=== PATIENT | male | born 1935 | race Caucasian/White ===

== ENCOUNTER 2020-02-18 17:41 | Inpatient (IN) ==
[2020-02-18 18:45] LABS: Hematocrit 45.1 % (42.0-52.0); Hemoglobin 15.1 gm/dL (13.5-18.0); Mean Corpuscular Hemoglobin 32.5 pg (27-31); Mean Corpuscular Hgb Conc 33.5 g/dl (32-36); Mean Platelet Volume 10.5 fl (8-11.3); Neutrophil # 5.1 K/mm3 (1.3-6.0); Neutrophil % 68.3 % (42-75.0); Platelet Count 184 K/mm3 (150-450); Red Blood Count 4.65 M/mm3 (4.7-6.0); Red Cell Distribution Width 12.7 % (11.5-14.0); White Blood Count 7.4 K/mm3 (4.0-10.5)
[2020-02-18 18:57] LABS: Prothrombin Time (Patient) 10.9 Seconds (9.1-10.7)
[2020-02-18 19:01] LABS: INR 1.11 INR (0.92-1.08); Partial Thrombolplastin Time 29.1 Seconds (24-32)
[2020-02-18 19:02] LABS: Albumin * 3.3 gm/dl (3.4-5.0); Anion Gap 16.7 mmol/L (6.8-13.8); BUN/Creatinine Ratio 13.5 (9.0-21.6); Bilirubin, Total 0.4 mg/dL (0.0-1.1); Calcium * 8.8 mg/dL (7.9-10.9); Carbon Dioxide 22.5 mmol/L (24-32.6); Potassium 4.2 mmol/L (3.4-4.6); Total Protein 7.8 gm/dL (6.2-8.2)
[2020-02-18 19:04] LABS: Troponin I 0.113 ng/mL (0.00-0.10)
[2020-02-18 19:49] LABS: Urine Bilirubin Negative (NEGATIVE); Urine Blood Negative /ul (NEGATIVE); Urine Ketone Negative (NEGATIVE); Urine Nitrite Negative (NEGATIVE); Urine Protein 15 mg/dL (NEGATIVE); Urine Urobilinogen Normal (NORMAL); Urine pH 6.5 pH (5.0-7.0)
[2020-02-18] MEDS ORDERED: FUROSEMIDE 10 MG/ML VIAL IV ONE (19:52)
[2020-02-18 20:12] LABS: Urine Amorphous Sediment Many - 3+ (NONE-FEW); Urine Appearance Clear (CLEAR); Urine Bacteria TRACE; Urine Color Yellow; Urine RBC None Seen /hpf (0-5); Urine WBC TRACE /hpf (0-5)
[2020-02-18] MEDS ORDERED: ENOXAPARIN SODIUM 100 MG/ML SYRG SC SCH (22:00)
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
[2020-02-19] MEDS: ACETAMINOPHEN 325 MG TABLET PO PRN ×2 (00:47→08:40)
[2020-02-19] MEDS: LOSARTAN POTASSIUM 50 MG TABLET PO SCH (08:39)
[2020-02-19] MEDS: ASPIRIN 81 MG TABLET.DR PO SCH (08:39)
[2020-02-19] MEDS ORDERED: SIMVASTATIN 20 MG TABLET PO SCH ×2 (09:00→21:00)
[2020-02-19] MEDS ORDERED: CLOPIDOGREL BISULFATE 75 MG TABLET PO SCH (09:00)
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
[2020-02-19] MEDS: DEXAMETHASONE SODIUM PHOSP/PF 10 MG/ML VIAL IV SCH (11:40)
[2020-02-19] MEDS: ENOXAPARIN SODIUM 80 MG/0.8 ML DISP.SYRIN SC SCH ×2 (11:40→22:53)
[2020-02-19] MEDS: FUROSEMIDE 40 MG TABLET PO SCH (11:40)
[2020-02-20] MEDS: LOSARTAN POTASSIUM 50 MG TABLET PO SCH (09:16)
[2020-02-20] MEDS: DEXAMETHASONE SODIUM PHOSP/PF 10 MG/ML VIAL IV SCH (09:16)
[2020-02-20] MEDS: ASPIRIN 81 MG TABLET.DR PO SCH (09:16)
[2020-02-20] MEDS: FUROSEMIDE 40 MG TABLET PO SCH (09:17)
[2020-02-20] MEDS: ENOXAPARIN SODIUM 80 MG/0.8 ML DISP.SYRIN SC SCH (10:35)
--- NOTE | 2020-02-20 16:34 | DS ---
(1) COVID-19 Problem: Acute (2) CHF (congestive heart failure) Problem: Acute Qualifiers: Heart failure type: unspecified Heart failure chronicity: acute Qualified Code(s): I50.9 - Heart failure, unspecified (3) Fatigue Problem: Resolved (4) Weakness Problem: Resolved (5) Elevated brain natriuretic peptide (BNP) level Problem: Acute (6) Lactic acidosis Problem: Resolved Date of Discharge:: 02/20/20 Hospital Course: 84-year-old male admitted to [facility] as an inpatient due to profound weakness and deconditioning from COVID-19 infection. From a Covid patient standpoint, he was very stable did not require oxygen. He was started on Lovenox as a DVT prophylaxis. He also started on Decadron which will be continued for an additional 5 days while here he made significant provement in his strength and mentation. Initially concerned that he was confused that was not seen while here. He was appropriate with his responses and pleasant to converse with. He has had fevers off and on since being here though and patient will need to continue to quarantine at home until his fevers pass for at least 7 days. Of note patient was found to have an elevated BNP but he has no history of CHF. This will need to be evaluated in outpatient setting. Patient would benefit from echocardiogram which can be ordered by his PCP. Patient did receive Lasix while here but would not be sent home with any as he did not appear to fluid overloaded. Patient will need further work-up in regards to this. No changes to his chronic medications. His vital signs been stable while here aside from 2 elevated temperature readings on the rest were within normal limits. Patient is to follow-up with his PCP in 1 to 2 weeks after he has stopped having fevers. This can also be arranged by telemedicine. Procedures Performed: none Results and Findings: Lab Pending Results 02/18/20 18:37: WBC 7.4, RBC 4.65 L, Hgb 15.1, Hct 45.1, MCV 97.0, MCH 32.5 H, MCHC 33.5, RDW 12.7, Plt Count 184, MPV 10.5, Immature Gran % (Auto) 0.40, Immature Gran # (Auto) 0.03, Neutrophils % 68.3, Lymphocytes % 25.3, Monocytes % 5.7, Eosinophils % 0.0, Basophils % 0.3, Nucleated RBC % 0.0, Neutrophils # 5.1, Lymphocytes # 1.87, Monocytes # 0.4, Eosinophils # 0.0, Absolute Basophils 0.0 02/18/20 18:37: ESR 50 H 02/18/20 18:37: PT 10.9 H, INR (Anticoag Therapy) 1.11 H, PTT (Ziggy) 29.1 02/18/20 18:37: Sodium 129 L, Plasma Sodium 130, Potassium 4.2, Chloride 94 L, Carbon Dioxide 22.5 L, Anion Gap 16.7 H, BUN 18, Creatinine 1.33, Est GFR (Non- Af Amer) 55 L, BUN/Creatinine Ratio 13.5, Random Glucose 139 H, Calcium 8.8, Calcium Adj for Albumin 9.0, Total Bilirubin 0.4, AST 35, ALT 28, Alkaline Phosphatase 52, Troponin I 0.113 H*, Total Protein 7.8, Albumin 3.3 L 02/18/20 18:37: B-Natriuretic Peptide 3911 H 02/18/20 18:37: Procalcitonin 0.07 02/18/20 18:37: Lactic Acid, Venous 2.5 H* 02/18/20 19:13: SARS-CoV-2 (PCR) Detected H 02/18/20 19:24: Urine Color Yellow, Urine Appearance Clear, Urine pH 6.5, Ur Specific [place] 1.020, Urine Protein 15 H, Urine Glucose (UA) Negative, Urine Ketones Negative, Urine Blood Negative, Urine Nitrate Negative, Urine Bilirubin Negative, Prot Sulfosalicylic Acd Negative, Urine Urobilinogen Normal, Ur Leukocyte Esterase Negative, Urine RBC None seen, Urine WBC Trace, Ur Epithelial Cells Trace, Amorphous Sediment Many - 3+ H, Urine Bacteria Trace, Urine Culture Comments No culture indicated 02/18/20 19:30: Ammonia Less than 17.0 02/18/20 20:00: pCO2 30.8 L, pO2 63.5 L, HCO3 22.4, Total CO2 23.3, Base Excess -0.1, ABG pH 7.48 H, ABG O2 Sat (Measured) 93.9 L 02/18/20 21:24: Troponin I 0.112 H* 02/18/20 22:30: Lactic Acid, Venous 1.0 Discharge Location: Home Disposition: Home self-care Condition: Stable Discharge Activity: Activity as tolerated Discharge Diet: General/regular food Referrals: Kyle Ji MD [Primary Care Provider] - Two Weeks Prescriptions (Any new or edited meds): Dexamethasone 6 mg PO DAILY #5 tab Transmission Status: Pending to [facility] Complete Home Medications List: Complete Home Medication List: Aspirin [Aspirin EC] 81 mg PO DAILY 02/18/20 Clopidogrel Bisulfate [Plavix] 75 mg PO DAILY 02/18/20 Losartan Potassium [Cozaar] 100 mg PO 02/18/20 Multivitamin [Multivitamins] 1 ea PO DAILY 02/18/20 Pravastatin Sodium [Pravachol] 40 mg PO 02/18/20 Promethazine HCl [Phenergan Syrup] 6.25 mg PO 02/18/20 Triamcinolone Acetonide [Kenalog 0.025% Cream] 1 appl TOPICAL BID 02/18/20 Dexamethasone 6 mg PO DAILY #5 tab 02/20/20 Forms: Patient Portal Registration
[2020-02-20 18:44] VITALS: BP 132/78
== END 2020-02-20 18:00 | disposition home or self-care (01) | DRG 178 ==
LOC: MS 17:41 → ER 17:41 → MS 23:30
PROVIDERS: ADMIT Family Medicine; ATTEND Family Medicine
DX: N18.30 Chronic kidney disease, stage 3 unspecified; R41.82 Altered mental status, unspecified; I13.0 Hypertensive heart and chronic kidney disease with heart failure and stage 1 through stage 4 chronic kidney disease, or unspecified chronic kidney disease; U07.1 COVID-19; R53.1 Weakness

== ENCOUNTER 2020-02-20 23:56 | Inpatient (IN) ==
[2020-02-21 01:37] LABS: Hematocrit 44.2 % (42.0-52.0); Mean Cell Volume 95.5 fl (78-100); Mean Corpuscular Hemoglobin 32.4 pg (27-31); Mean Corpuscular Hgb Conc 33.9 g/dl (32-36); Mean Platelet Volume 11.1 fl (8-11.3); Neutrophil # 5.4 K/mm3 (1.3-6.0); Neutrophil % 77.8 % (42-75.0); Platelet Count 204 K/mm3 (150-450); Red Blood Count 4.63 M/mm3 (4.7-6.0); Red Cell Distribution Width 12.3 % (11.5-14.0)
[2020-02-21 01:40] LABS: Anion Gap 9.9 mmol/L (6.8-13.8); BUN/Creatinine Ratio 16.4 (9.0-21.6); Bilirubin, Total 0.4 mg/dL (0.0-1.1); Ca. Corrected For Albumin 8.6 mg/dL (8.4-10.2); Calcium * 8.1 mg/dL (7.9-10.9); Carbon Dioxide 27.1 mmol/L (24-32.6); Total Protein 7.4 gm/dL (6.2-8.2)
[2020-02-21 01:43] LABS: Troponin I 0.058 ng/mL (0.00-0.10)
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
[2020-02-21] MEDS ORDERED: NORMAL SALINE 1,000 ML IV ONE ×2 (03:19→03:35)
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
[2020-02-21 06:47] LABS: Hematocrit 43.4 % (42.0-52.0); Hemoglobin 14.7 gm/dL (13.5-18.0); Mean Corpuscular Hemoglobin 32.2 pg (27-31); Mean Corpuscular Hgb Conc 33.9 g/dl (32-36); Mean Platelet Volume 10.8 fl (8-11.3); Neutrophil # 5.7 K/mm3 (1.3-6.0); Platelet Count 188 K/mm3 (150-450); Red Blood Count 4.57 M/mm3 (4.7-6.0); Red Cell Distribution Width 12.3 % (11.5-14.0); White Blood Count 7.3 K/mm3 (4.0-10.5)
[2020-02-21 07:09] LABS: Albumin * 2.9 gm/dl (3.4-5.0); Anion Gap 11.9 mmol/L (6.8-13.8); Bilirubin, Total 0.5 mg/dL (0.0-1.1); Ca. Corrected For Albumin 8.8 mg/dL (8.4-10.2); Calcium * 8.2 mg/dL (7.9-10.9); Carbon Dioxide 24.9 mmol/L (24-32.6); Potassium 3.8 mmol/L (3.4-4.6); Total Protein 7.2 gm/dL (6.2-8.2)
[2020-02-21] MEDS ORDERED: DEXAMETHASONE 6 MG PO SCH (11:00)
[2020-02-21] MEDS ORDERED: LOSARTAN POTASSIUM 50 MG TABLET PO SCH (11:00)
[2020-02-21] MEDS: DEXAMETHASONE 2 MG, DEXAMETHASONE 4 MG PO SCH ×2 (12:15)
[2020-02-21] MEDS: ASPIRIN 81 MG TABLET.DR PO SCH (12:15)
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
[2020-02-21] MEDS: SIMVASTATIN 20 MG TABLET PO SCH (20:07)
[2020-02-22 06:51] LABS: Hematocrit 45.2 % (42.0-52.0); Hemoglobin 15.2 gm/dL (13.5-18.0); Mean Corpuscular Hemoglobin 32.3 pg (27-31); Mean Corpuscular Hgb Conc 33.6 g/dl (32-36); Mean Platelet Volume 10.7 fl (8-11.3); Neutrophil # 6.3 K/mm3 (1.3-6.0); Neutrophil % 81.4 % (42-75.0); Platelet Count 191 K/mm3 (150-450); Red Blood Count 4.71 M/mm3 (4.7-6.0); Red Cell Distribution Width 12.4 % (11.5-14.0); White Blood Count 7.7 K/mm3 (4.0-10.5)
[2020-02-22 07:10] LABS: Albumin * 2.7 gm/dl (3.4-5.0); Anion Gap 11.3 mmol/L (6.8-13.8); BUN/Creatinine Ratio 18.9 (9.0-21.6); Bilirubin, Total 0.5 mg/dL (0.0-1.1); Ca. Corrected For Albumin 8.8 mg/dL (8.4-10.2); Calcium * 8.1 mg/dL (7.9-10.9); Carbon Dioxide 25.8 mmol/L (24-32.6); Potassium 4.1 mmol/L (3.4-4.6); Total Protein 7.2 gm/dL (6.2-8.2)
[2020-02-22] MEDS: DEXAMETHASONE 2 MG, DEXAMETHASONE 4 MG PO SCH ×2 (10:07)
[2020-02-22] MEDS: CLOPIDOGREL BISULFATE 75 MG TABLET PO SCH (10:07)
[2020-02-22] MEDS: ASPIRIN 81 MG TABLET.DR PO SCH (10:08)
--- NOTE | 2020-02-22 10:31 | PN ---
Subjective - Date and Time Seen Date: 02/22/20 Time: 09:23 Subjective Narrative: He feels okay, denies chest pain or shortness of breath. He has an intermittent cough. He is alert and oriented x3. Objective - Review of Systems Generalized/Overall Review: Denies: Fever Respiratory: Denies: Shortness of Breath Cardiac: Denies: Chest Pain Abdominal: Denies: Abdominal Pain Misc: All systems neg except as marked - Vitals Vitals: Last Vital Signs Temp 37.6 C 02/22/20 09:58 Pulse 99 02/22/20 10:07 Resp 22 H 02/22/20 09:58 BP 124/81 02/22/20 10:07 Pulse Ox 93 02/22/20 09:58 - Abnormal Lab Findings Abnormal Lab Findings: Abnormal Lab Results 02/22/20 02/22/20 Range/Units 06:40 06:40 MCH 32.3 H (27-31) pg Immature Gran % (Auto) 0.80 H (0.001-0.429) % Immature Gran # (Auto) 0.06 H (0.000-0.0310) K/mm3 Neutrophils % 81.4 H (42-75.0) % Lymphocytes % 11.7 L (20-51) % Neutrophils # 6.3 H (1.3-6.0) K/mm3 Lymphocytes # 0.90 L (1.5-3.5) k/mm3 Sodium 130 L (132-142) mmol/L BUN 24 H (6-23) mg/dL Est GFR (Non-Af Amer) 58 L (60-130) mL/min Random Glucose 128 H (70-110) mg/dL AST 70 H (0-48) U/L Albumin 2.7 L (3.4-5.0) gm/dl - Exam Constitutional: Present: Alert, Oriented x3, Cooperative, Well developed, Well nourished, No distress, Elderly ENT Exam: Present: hearing grossly normal Neck: Present: non-tender, supple. Absent: lymphadenopathy (R), lymphadenopathy (L) Respiratory: Present: lungs clear, no respiratory distress, no accessory muscle use, decreased breath sounds - Throughout all lung macdonald, No wheezing. Absent: crackles, rhonchi Cardiovascular/Chest: Present: normal peripheral pulses, regular rate, rhythm, no edema, no murmur Abdomen: Present: Normal bowel sounds, soft, nontender Extremity: Present: no pedal edema Skin Exam: Present: normal color, warm/dry Neurologic: Present: program assistant II-XII nml as tested, alert, normal mood/affect Appearance: Present: appropriate appearance Eye contact: Present: cooperative Thoughts: Present: normal mood /affect Assessment/Plan Plan Narrative: 84-year-old male with a past medical history of CKD 3, hypertension, hyperlipidemia, ARTEMIO, pulmonary fibrosis presents from home with altered mental status and fever. Patient was recently discharged from the hospital yesterday after being admitted for Covid. In the emergency room he received a CT scan that was negative for acute hemorrhage or mass effect. Blood work was positive for hyponatremia at 125. He received IV fluid hydration and blood work this morning improved to 127. Etiology of the altered mental status may be multifactorial secondary to acute hyponatremia, COVID-19 infection and fever. He appears more alert today. He is alert and oriented x3. Sodium has improved to 130. He has been afebrile for the past 24 hours. Plan #1 continue with IV fluid fluid hydration #2 repeat CBC and CMP in the morning #4 continue with dexamethasone 6 mg daily #5 oxygen supplementation as needed #6 resume home medications for comorbidities #7 VTE prophylaxis with Lovenox - Problems/Diagnosis (1) Fever Problem: Acute (2) COVID-19 Problem: Acute (3) CHF (congestive heart failure) Problem: Acute (4) Altered mental status Problem: Acute (5) Confusion Problem: Acute (6) Hyponatremia Problem: Acute (7) CKD (chronic kidney disease) stage 3, GFR 30-59 ml/min Problem: Acute (8) HTN (hypertension) Problem: Acute (9) HLD (hyperlipidemia) Problem: Acute (10) Metabolic encephalopathy Problem: Acute
[2020-02-22] MEDS ORDERED: NORMAL SALINE 1,000 ML IV PRN (12:27)
[2020-02-22] MEDS: ENOXAPARIN SODIUM 40 MG/0.4 ML SYRG SC SCH (13:03)
[2020-02-22] MEDS: SIMVASTATIN 20 MG TABLET PO SCH (20:57)
[2020-02-23] MEDS ORDERED: ENALAPRILAT DIHYDRATE 2.5 MG/2 ML VIAL IV ONE (00:14)
[2020-02-23] MEDS ORDERED: MORPHINE SULFATE 4 MG/ML SYRG ONE (00:15)
[2020-02-23] MEDS ORDERED: LORazepam 2 MG/ML DISP.SYRIN ONE (00:16)
[2020-02-23] MEDS ORDERED: MORPHINE SULFATE 4 MG/ML SYRG IV STA (00:16)
[2020-02-23] MEDS ORDERED: ENALAPRILAT DIHYDRATE 1.25 MG/ML VIAL IV STA (00:17)
[2020-02-23] MEDS ORDERED: LORazepam 2 MG/ML DISP.SYRIN IV STA (00:17)
[2020-02-23] MEDS ORDERED: MORPHINE SULFATE 2 MG/ML DISP.SYRIN IV PRN (01:05)
[2020-02-23] MEDS ORDERED: LORazepam 2 MG/ML DISP.SYRIN IV PRN (01:05)
[2020-02-23] MEDS: NITROGLYCERIN 1 INCH PACKET TD SCH ×4 (01:24→20:25)
--- NOTE | 2020-02-23 01:53 | DS ---
Transfer Discharge Summary - Diagnosis(s)/Problems (1) Acute anterior wall PR Problem: Acute (2) COVID-19 Problem: Acute (3) HTN (hypertension) Problem: Acute - Course Description of Stay: 84-year-old male with a past medical history of CKD 3, hypertension, hyperlipidemia, ARTEMIO, pulmonary fibrosis presents from home with altered mental status and fever. Patient was recently discharged from the hospital yesterday after being admitted for Covid. In the emergency room he received a CT scan that was negative for acute hemorrhage or mass effect. Blood work was positive for hyponatremia at 125. He received IV fluid hydration and blood work this morning improved to 127. About 1130 he was discovered to be in acute respiratory distress in his room. He was hypoxic with sats in the 70s and was very agitated and frightened because of the hypoxemia. He was placed on a O2 mask at 12 L and his sats came back up at 91%. Blood gases show pH 7.37 with mild hypercarbia and bicarb being low at 17. The EKG shows a STEMI in the anterior wall. Troponin was just reported to me at 0.275. This is up from 0.0582 days ago. I been informed that he recently had a stent placed but he doctors in [facility] and we do not know the location of the stent at this time. He is on aspirin and Plavix routinely because of the stent and he has been on Lovenox here. He presented 2 days ago with shortness of breath was treated in ER released and went back home to self quarantine but worsened and represented to ER today. He is a patient of Dr. ramirez. I gave him morphine 3 mg and lorazepam 1 mg and have placed 1 inch of nitro paste on the AC W and also gave him 0.0625 of enalapril IV. He takes p.o. losartan which I will put on hold. I contacted [facility] and they had a CCU bed but not a Covid room. I contacted [facility] and they are at capacity for their Covid patients but would accept him with STEMI. I spoke with Dr. Cordoba at [facility] whose a bone density technician and reviewed the case with him. He insists that I give TPA here before transferring and so that will be done. I advised him of the recent stent placement and that he was on aspirin and Plavix on admission and is now on enoxaparin. There are acute EKG changes and there is an acute elevation of his troponin so I am confident that he has had an acute anterior wall PR. He will be transferred to [facility] as soon as the TPA is completed. After discussing this with the daughters it was decided to just allow him to evolve his PR rather than risk a thrombolytic. The tipping point for me was the blood-tinged frothy sputum he coughed up when he was having his acute pulmonary edema. He is has relative contraindications including being on a variety of anticoagulation medicines. I encouraged the family not to take the risk and they concurred. We also did another EKG that showed only V1 and V2 having continued mild ST elevation. It had returned to baseline in 3 and 4. I have no doubt that he had a STEMI with a bump in his troponin and the changes in his EKG and clinical appearance. Therefore he was not transferred. Procedures Performed: none - Results and Findings Results and Findings: Laboratory Results - last 24 hr 02/22/20 02/22/20 02/22/20 06:40 06:40 23:50 WBC 7.7 RBC 4.71 Hgb 15.2 Hct 45.2 MCV 96.0 MCH 32.3 H MCHC 33.6 RDW 12.4 Plt Count 191 MPV 10.7 Immature Gran % (Auto) 0.80 H Immature Gran # (Auto) 0.06 H Neutrophils % 81.4 H Lymphocytes % 11.7 L Monocytes % 6.0 Eosinophils % 0.0 Basophils % 0.1 Nucleated RBC % 0.0 Neutrophils # 6.3 H Lymphocytes # 0.90 L Monocytes # 0.5 Eosinophils # 0.0 Absolute Basophils 0.0 pCO2 29.7 L pO2 62.4 L HCO3 17.1 L Total CO2 18.0 L Base Excess -6.3 L ABG pH 7.38 ABG O2 Sat (Measured) 91.9 L Sodium 130 L Plasma Sodium 130 Potassium 4.1 Chloride 97 Carbon Dioxide 25.8 Anion Gap 11.3 BUN 24 H Creatinine 1.27 Est GFR (Non-Af Amer) 58 L BUN/Creatinine Ratio 18.9 Random Glucose 128 H Calcium 8.1 Calcium Adj for Albumin 8.8 Total Bilirubin 0.5 AST 70 H ALT 60 Alkaline Phosphatase 50 Total Protein 7.2 Albumin 2.7 L - Medications Medications: Active Medications Aspirin (Aspirin Enteric Coated) 81 mg PO DAILY DIEGO Stop: 03/22/20 11:01 Last Admin: 02/22/20 10:08 Dose: 81 mg Documented by: Clopidogrel Bisulfate (Plavix) 75 mg PO DAILY DIEGO Stop: 03/23/20 09:01 Last Admin: 02/22/20 10:07 Dose: 75 mg Documented by: Dexamethasone 2 mg/ (Dexamethasone 4 mg) 6 mg PO DAILY DIEGO Stop: 03/22/20 11:16 Last Admin: 02/22/20 10:07 Dose: 6 mg Documented by: Enoxaparin Sodium (Lovenox) 40 mg SC Q24H DIEGO Stop: 03/23/20 12:31 Last Admin: 02/22/20 13:03 Dose: 40 mg Documented by: Losartan Potassium (Cozaar) 100 mg PO DAILY DIEGO Stop: 03/22/20 11:01 Last Admin: 02/22/20 10:07 Dose: 100 mg Documented by: Nitroglycerin (Nitro-Bid 2% Ointment) 1 inch TD Q6HRT DIEGO Stop: 03/24/20 01:01 Last Admin: 02/23/20 01:24 Dose: 1 inch Documented by: Simvastatin (Zocor) 20 mg PO HS DIEGO Stop: 03/22/20 21:01 Last Admin: 02/22/20 20:57 Dose: 20 mg Documented by: Discontinued Medications Enalaprilat (Vasotec) 0.625 mg IV ONCE STA Stop: 02/23/20 00:18 Last Admin: 02/23/20 00:23 Dose: 0.625 mg Documented by: Sodium Chloride (Sodium Chloride 0.9%) 1,000 mls @ 999 mls/hr IV .Q1H1M ONE Stop: 02/21/20 04:19 Last Infusion: 02/21/20 09:43 Dose: Infused Documented by: Sodium Chloride (Sodium Chloride 0.9%) 1,000 mls @ 100 mls/hr IV .Q10H ONE Stop: 02/21/20 13:34 Last Infusion: 02/21/20 13:50 Dose: Infused Documented by: Sodium Chloride (Sodium Chloride 0.9%) 1,000 mls @ 70 mls/hr IV .[id number] PRN PRN Reason: HYDRATION Last Admin: 02/22/20 13:03 Dose: 70 mls/hr Documented by: Lorazepam (Ativan) 1 mg IV ONCE STA Stop: 02/23/20 00:18 Last Admin: 02/23/20 00:20 Dose: 1 mg Documented by: Morphine Sulfate (Morphine Sulfate) 3 mg IV ONCE STA Stop: 02/23/20 00:17 Last Admin: 02/23/20 00:23 Dose: 3 mg Documented by: - Disposition Disposition: Short Term Hospital Inpatient Condition: Serious Discharge Date: 02/23/20 Discharge Time: 01:50
[2020-02-23] MEDS ORDERED: ALTEPLASE IV STA (02:03)
[2020-02-23] MEDS ORDERED: WATER FOR INJECTION STERILE IV STA (02:03)
[2020-02-23 07:09] LABS: Hematocrit 41.6 % (42.0-52.0); Hemoglobin 14.3 gm/dL (13.5-18.0); Mean Corpuscular Hemoglobin 32.6 pg (27-31); Mean Corpuscular Hgb Conc 34.4 g/dl (32-36); Mean Platelet Volume 10.7 fl (8-11.3); Neutrophil # 12.1 K/mm3 (1.3-6.0); Neutrophil % 88.9 % (42-75.0); Platelet Count 198 K/mm3 (150-450); Red Blood Count 4.38 M/mm3 (4.7-6.0); Red Cell Distribution Width 12.6 % (11.5-14.0); White Blood Count 13.6 K/mm3 (4.0-10.5)
[2020-02-23 07:22] LABS: Albumin * 2.3 gm/dl (3.4-5.0); Anion Gap 13.6 mmol/L (6.8-13.8); BUN/Creatinine Ratio 22.6 (9.0-21.6); Bilirubin, Total 0.5 mg/dL (0.0-1.1); Ca. Corrected For Albumin 8.8 mg/dL (8.4-10.2); Calcium * 7.8 mg/dL (7.9-10.9); Carbon Dioxide 22.9 mmol/L (24-32.6); Potassium 4.5 mmol/L (3.4-4.6); Total Protein 6.3 gm/dL (6.2-8.2)
[2020-02-23] MEDS: ENALAPRILAT DIHYDRATE 1.25 MG/ML VIAL IV SCH ×4 (08:58→20:25)
[2020-02-23] MEDS: ASPIRIN 81 MG TABLET.DR PO SCH (08:58)
[2020-02-23] MEDS: DEXAMETHASONE 2 MG, DEXAMETHASONE 4 MG PO SCH ×2 (08:59)
[2020-02-23] MEDS: CLOPIDOGREL BISULFATE 75 MG TABLET PO SCH (09:00)
[2020-02-23] MEDS: ENOXAPARIN SODIUM 40 MG/0.4 ML SYRG SC SCH (13:37)
[2020-02-23] MEDS: TRIAMCINOLONE ACETONIDE 15 APPL TUBE TP SCH ×2 (13:41→20:25)
--- NOTE | 2020-02-23 16:11 | PN ---
Subjective - Date and Time Seen Date: 02/23/20 Time: 12:25 Subjective Narrative: Dewayne Baron is an 84-year-old male patient of Dr. Oliveira in [place]. He presented here because of marked shortness of breath and dyspnea and was admitted. He had a very eventful night having an acute myocardial infarction that was a STEMI in the anterior chest wall. His symptoms began around 1140 last night. I came in about 1230 and was here until oh 3:40 AM. He was very anxious and air hungry. They were able to get him on 15 L of nasal cannula O2 which was later changed to nonrebreather mask and his sats came up from the low 70s into the low 90s. He was given morphine. Is also given lorazepam. He was much more comfortable within about 30 minutes of that. The chest x-ray showed flash pulmonary edema in the EKG showed ST elevation in the anterior wall. Initially I had intended to transfer him. I talked to Dr. Cordoba (cardiology) and Rajesh and he would accept but only if I gave thrombolytics. He had coughed up some blood-tinged sputum during the pulmonary edema episode. I spoke with his daughters at length and try to get a hold of Dr. Oliveira but he was out of town. The daughters have medical power of associate attorney. Mr. Baron had a DNR and DNI order in place. He has verbalized to me today that he wants to rescend that DNR order. He remained stable for the next hour and a half and the decision was made to just let him evolve the VT rather than risk thrombolytic therapy. Today he is awake alert conversant and in no distress. His oxygen saturations are in the 90s. He requested something for coughing and for sleep. I gave him some codeine with guaifenesin and that did seem to help with the cough and he slept well for a while. Because of the VT I think he will have to be here the weekend. From the Covid perspective I think he is close to being dischargeable. Vital signs: Pulse this morning was 124 and respirations 30, BP 123/72, O2 saturation =91% while awake on room air and dropped to 85% when he fell asleep. The CBC is a white count of 13,600 hemoglobin is 12.3 g. There is 89% neutrophils. Sodium is 129 potassium 4.5 CO2 is 22.9. Chloride is normal. Glucose was 206 this morning. The AST is 67 and down from 71 and the ALT is 44 and down from 50. The albumin is 2.3 and down from 2.6. The troponin is elevated at 2.144 up from 0.05 on admission. The chest x-ray shows pulmonary vascular congestion and pneumonia and cardiomegaly. The EKG shows an acute STEMI in the anterior wall. Objective - Review of Systems Generalized/Overall Review: Reports: Weakness, Malaise EENTM: Reports: No Symptoms Reported Respiratory: Reports: Cough, Shortness of Breath, Wheezing Cardiac: Reports: No Symptoms Reported, Chest Pain. Denies: Edema, Palpitations Abdominal: Reports: No Symptoms Reported Genitourinary Symptoms: Reports: No Symptoms Reported Musculoskeletal Complaints: Reports: No Symptoms Reported Neurological: Reports: No Symptoms Reported Skin: Reports: No Symptoms Reported Endocrine: Reports: No Symptoms Reported - Vitals Vitals: Last Vital Signs Temp 37.3 C 02/23/20 15:08 Pulse 124 H 02/23/20 15:08 Resp 30 H 02/23/20 15:08 BP 123/72 02/23/20 15:08 Pulse Ox 91 L 02/23/20 15:08 - Abnormal Lab Findings Abnormal Lab Findings: Abnormal Lab Results 02/22/20 02/23/20 02/23/20 Range/Units 23:50 01:05 06:55 WBC 13.6 H D (4.0-10.5) K/mm3 RBC 4.38 L (4.7-6.0) M/mm3 Hct 41.6 L (42.0-52.0) % MCH 32.6 H (27-31) pg Immature Gran % (Auto) 1.10 H (0.001-0.429) % Immature Gran # (Auto) 0.15 H (0.000-0.0310) K/mm3 Neutrophils % 88.9 H (42-75.0) % Lymphocytes % 6.2 L (20-51) % Neutrophils # 12.1 H (1.3-6.0) K/mm3 Lymphocytes # 0.85 L (1.5-3.5) k/mm3 pCO2 29.7 L (35.0-48.0) mmHg pO2 62.4 L (83.0-108.0) mmHg HCO3 17.1 L (21.0-28.0) mmol/L Total CO2 18.0 L (19.0-24.0) mmol/L Base Excess -6.3 L (-2.0-3.0) mmol/L ABG O2 Sat (Measured) 91.9 L (94.0-98.0) % Sodium (132-142) mmol/L Carbon Dioxide (24-32.6) mmol/L BUN (6-23) mg/dL Est GFR (Non-Af Amer) (60-130) mL/min BUN/Creatinine Ratio (9.0-21.6) Random Glucose (70-110) mg/dL Calcium (7.9-10.9) mg/dL AST (0-48) U/L ALT (19-67) U/L Alkaline Phosphatase (50-170) U/L Troponin I 0.275 H* (0.00-0.10) ng/mL Albumin (3.4-5.0) gm/dl 02/23/20 02/23/20 Range/Units 06:55 06:55 WBC (4.0-10.5) K/mm3 RBC (4.7-6.0) M/mm3 Hct (42.0-52.0) % MCH (27-31) pg Immature Gran % (Auto) (0.001-0.429) % Immature Gran # (Auto) (0.000-0.0310) K/mm3 Neutrophils % (42-75.0) % Lymphocytes % (20-51) % Neutrophils # (1.3-6.0) K/mm3 Lymphocytes # (1.5-3.5) k/mm3 pCO2 (35.0-48.0) mmHg pO2 (83.0-108.0) mmHg HCO3 (21.0-28.0) mmol/L Total CO2 (19.0-24.0) mmol/L Base Excess (-2.0-3.0) mmol/L ABG O2 Sat (Measured) (94.0-98.0) % Sodium 129 L (132-142) mmol/L Carbon Dioxide 22.9 L (24-32.6) mmol/L BUN 28 H (6-23) mg/dL Est GFR (Non-Af Amer) 59 L (60-130) mL/min BUN/Creatinine Ratio 22.6 H (9.0-21.6) Random Glucose 206 H D (70-110) mg/dL Calcium 7.8 L (7.9-10.9) mg/dL AST 67 H (0-48) U/L ALT 70 H (19-67) U/L Alkaline Phosphatase 44 L (50-170) U/L Troponin I 2.144 H* (0.00-0.10) ng/mL Albumin 2.3 L (3.4-5.0) gm/dl - EKG/Xray Findings EKG: NSR, ST elevation - V1 through V4, other - Interventricular conduction delay EKG read: Interp. by me XRAY: chest Interpretation: Interp. by me - Exam Constitutional: Present: Alert, Oriented x3, Cooperative, Well developed, Well nourished, No distress ENT Exam: Present: normal ENT inspection, hearing grossly normal, pharynx normal, TMs normal Neck: Present: non-tender, full range of motion, supple Breasts: Present: Exam deferred Respiratory: Present: chest non-tender, decreased breath sounds, crackles, wheezing Cardiovascular/Chest: Present: normal peripheral pulses, regular rate, rhythm, no chest tenderness, no edema, no gallop, no JVD, no murmur Abdomen: Present: Normal bowel sounds, soft, nontender, nondistended, no rebound tenderness, no hepatospenomegaly, no masses /Rectal: Present: Exam deferred Extremity: Present: normal range of motion, non-tender, normal inspection, no pedal edema, no calf tenderness, normal capillary refill Skin Exam: Present: normal color, warm/dry, no cyanosis Lymphatic: Present: no adenopathy Neurologic: Present: can closing machine tender II-XII nml as tested, normal cerebellar test, no motor/sensory deficits, alert, normal mood/affect, oriented x 3 Appearance: Present: appropriate appearance, appropriate insight, neat, no memory impairment Eye contact: Present: cooperative, good eye contact, normal speech, avoids eye contact Thoughts: Present: normal thought pattern, no apparent hallucination, auditory hallucinations Assessment/Plan Plan Narrative: 1. Continue current continuous cardiac monitoring 2. Repeat EKG and chest x-ray tomorrow morning 3. Repeat lab tomorrow morning 4. I had a good visit with him about the DNR and that we probably would have intubated him last night had he not had that in place. He wishes to rescind the DNR. - Problems/Diagnosis (1) Acute anterior wall VT Problem: Acute (2) COVID-19 Problem: Acute (3) HTN (hypertension) Problem: Acute Qualifiers: Hypertension type: essential hypertension Qualified Code(s): I10 - Essential (primary) hypertension
[2020-02-23] MEDS: SIMVASTATIN 20 MG TABLET PO SCH (20:25)
[2020-02-24] MEDS: NITROGLYCERIN 1 INCH PACKET TD SCH ×4 (01:20→20:11)
[2020-02-24] MEDS: ENALAPRILAT DIHYDRATE 1.25 MG/ML VIAL IV SCH ×2 (01:21→07:08)
[2020-02-24] MEDS: CLOPIDOGREL BISULFATE 75 MG TABLET PO SCH (09:59)
[2020-02-24] MEDS: DEXAMETHASONE 2 MG, DEXAMETHASONE 4 MG PO SCH ×2 (09:59)
[2020-02-24] MEDS: ASPIRIN 81 MG TABLET.DR PO SCH (09:59)
[2020-02-24 10:13] LABS: Hematocrit 41.3 % (42.0-52.0); Hemoglobin 14.2 gm/dL (13.5-18.0); Mean Cell Volume 93.4 fl (78-100); Mean Corpuscular Hemoglobin 32.1 pg (27-31); Mean Corpuscular Hgb Conc 34.4 g/dl (32-36); Mean Platelet Volume 10.5 fl (8-11.3); Neutrophil # 9.7 K/mm3 (1.3-6.0); Neutrophil % 86.8 % (42-75.0); Platelet Count 224 K/mm3 (150-450); Red Blood Count 4.42 M/mm3 (4.7-6.0); Red Cell Distribution Width 12.5 % (11.5-14.0); White Blood Count 11.1 K/mm3 (4.0-10.5)
[2020-02-24 10:26] LABS: Albumin * 2.6 gm/dl (3.4-5.0); Anion Gap 14.4 mmol/L (6.8-13.8); BUN/Creatinine Ratio 22.8 (9.0-21.6); Bilirubin, Total 0.8 mg/dL (0.0-1.1); Ca. Corrected For Albumin 9.1 mg/dL (8.4-10.2); Calcium * 8.3 mg/dL (7.9-10.9); Carbon Dioxide 24.9 mmol/L (24-32.6); Potassium 4.3 mmol/L (3.4-4.6); Total Protein 7.1 gm/dL (6.2-8.2)
[2020-02-24] MEDS: TRIAMCINOLONE ACETONIDE 15 APPL TUBE TP SCH (12:53)
[2020-02-24] MEDS: ENOXAPARIN SODIUM 40 MG/0.4 ML SYRG SC SCH (13:15)
--- NOTE | 2020-02-24 18:48 | PN ---
Subjective - Date and Time Seen Date: 02/24/20 Time: 10:15 Objective - Review of Systems Generalized/Overall Review: Reports: No Symptoms Reported, Weakness EENTM: Reports: No Symptoms Reported Respiratory: Reports: Cough, Shortness of Breath Cardiac: Reports: No Symptoms Reported, Other - Normal sinus rhythm with occasional PVCs. Denies: Chest Pain, Edema, Palpitations Abdominal: Reports: No Symptoms Reported Genitourinary Symptoms: Reports: No Symptoms Reported Musculoskeletal Complaints: Reports: No Symptoms Reported Neurological: Reports: No Symptoms Reported Skin: Reports: No Symptoms Reported Endocrine: Reports: No Symptoms Reported - Vitals Vitals: Last Vital Signs Temp 36.4 C 02/24/20 17:57 Pulse 79 02/24/20 17:57 Resp 24 H 02/24/20 17:57 BP 124/90 H 02/24/20 17:57 Pulse Ox 100 02/24/20 17:57 - Abnormal Lab Findings Abnormal Lab Findings: Abnormal Lab Results 02/24/20 02/24/20 Range/Units 10:08 10:08 WBC 11.1 H (4.0-10.5) K/mm3 RBC 4.42 L (4.7-6.0) M/mm3 Hct 41.3 L (42.0-52.0) % MCH 32.1 H (27-31) pg Immature Gran % (Auto) 0.90 H (0.001-0.429) % Immature Gran # (Auto) 0.10 H (0.000-0.0310) K/mm3 Neutrophils % 86.8 H (42-75.0) % Lymphocytes % 7.5 L (20-51) % Neutrophils # 9.7 H (1.3-6.0) K/mm3 Lymphocytes # 0.83 L (1.5-3.5) k/mm3 Sodium 128 L (132-142) mmol/L Chloride 93 L (97-106) mmol/L Anion Gap 14.4 H (6.8-13.8) mmol/L BUN 29 H (6-23) mg/dL Est GFR (Non-Af Amer) 58 L (60-130) mL/min BUN/Creatinine Ratio 22.8 H (9.0-21.6) Random Glucose 239 H (70-110) mg/dL AST 58 H (0-48) U/L ALT 71 H (19-67) U/L Alkaline Phosphatase 48 L (50-170) U/L Albumin 2.6 L (3.4-5.0) gm/dl - EKG/Xray Findings EKG: NSR, other EKG read: Reviewed by me XRAY: chest Interpretation: Reviewed by me - Exam Constitutional: Present: Alert, Oriented x3, Cooperative, Well developed, Well nourished, No distress ENT Exam: Present: normal ENT inspection, hearing grossly normal, pharynx normal Neck: Present: non-tender, full range of motion Breasts: Present: Exam deferred Respiratory: Present: chest non-tender, crackles, wheezing Cardiovascular/Chest: Present: normal peripheral pulses, regular rate, rhythm, no chest tenderness, no edema, no gallop, no JVD, no murmur, extra beats Abdomen: Present: Normal bowel sounds, soft, nontender, nondistended, no rebound tenderness, no hepatospenomegaly, no masses /Rectal: Present: Exam deferred, External genitalia normal Extremity: Present: normal range of motion, non-tender, normal inspection, no pedal edema, no calf tenderness, normal capillary refill Skin Exam: Present: normal color, warm/dry, no cyanosis Lymphatic: Present: no adenopathy Neurologic: Present: pattern changer and repairer II-XII nml as tested, normal cerebellar test, no motor/sensory deficits Appearance: Present: appropriate appearance, appropriate insight, neat, no memory impairment Eye contact: Present: cooperative, good eye contact, normal speech, avoids eye contact Thoughts: Present: normal thought pattern, no apparent hallucination Assessment/Plan Plan Narrative: Repeat EKG shows ST elevation in V2 and V3 remaining. There is a interventricular conduction delay with a QRS duration of 136 ms. There is no bundle branch block. There appears to be a left anterior fascicular block but that does not explain the QRS duration. Chest x-ray shows interval improvement. His mental status has improved quite a lot. Lab: The lab shows WBC of 11,100 and a hemoglobin of 14.2 g. There are 87% neutrophils. Chemistry show sodium is 128, potassium 4.3, chloride 93. Glucose is elevated at 239. The AST is 58 and the ALT is 71 with an albumin of 2.6. The repeat chest x-ray shows interval improvement in the pulmonary edema but there are still residual Covid pneumonia findings. Repeat lab again tomorrow morning. - Problems/Diagnosis (1) Acute anterior wall [place] Problem: Acute (2) COVID-19 Problem: Acute (3) HTN (hypertension) Problem: Acute Qualifiers: Hypertension type: essential hypertension Qualified Code(s): I10 - Essential (primary) hypertension (4) Hyponatremia Problem: Acute
[2020-02-24] MEDS: SIMVASTATIN 20 MG TABLET PO SCH (20:10)
[2020-02-25] MEDS: NITROGLYCERIN 1 INCH PACKET TD SCH ×3 (01:43→12:42)
[2020-02-25 07:06] LABS: Hematocrit 39.7 % (42.0-52.0); Hemoglobin 13.5 gm/dL (13.5-18.0); Mean Cell Volume 94.1 fl (78-100); Mean Platelet Volume 10.8 fl (8-11.3); Platelet Count 254 K/mm3 (150-450); Red Blood Count 4.22 M/mm3 (4.7-6.0); Red Cell Distribution Width 12.1 % (11.5-14.0); White Blood Count 8.1 K/mm3 (4.0-10.5)
[2020-02-25 07:13] LABS: Total Cells Counted 100
[2020-02-25 07:51] LABS: Albumin * 2.2 gm/dl (3.4-5.0); Anion Gap 12.3 mmol/L (6.8-13.8); Bilirubin, Total 0.6 mg/dL (0.0-1.1); Ca. Corrected For Albumin 9.3 mg/dL (8.4-10.2); Calcium * 8.2 mg/dL (7.9-10.9); Carbon Dioxide 24.2 mmol/L (24-32.6); Potassium 4.5 mmol/L (3.4-4.6); Total Protein 6.2 gm/dL (6.2-8.2)
[2020-02-25 08:22] LABS: Band 1 % (0-2.0); Immature Granulocyte 1 (0-1); Lymphocyte 10 % (20-51); Monocyte 5 % (0-9); Neutrophil 83 % (42-75); Neutrophil # 6.7 K/mm3 (1.3-6.0); Platelet Estimate Normal (NORMAL)
[2020-02-25 08:23] LABS: RBC Morphology Normal (NORMAL)
[2020-02-25] MEDS: ASPIRIN 81 MG TABLET.DR PO SCH (09:18)
[2020-02-25] MEDS: CLOPIDOGREL BISULFATE 75 MG TABLET PO SCH (09:18)
[2020-02-25] MEDS: DEXAMETHASONE 2 MG, DEXAMETHASONE 4 MG PO SCH ×2 (09:18)
--- NOTE | 2020-02-25 10:22 | DS ---
(1) Fever Problem: Acute (2) COVID-19 Problem: Acute (3) CHF (congestive heart failure) Problem: Acute (4) Altered mental status Problem: Acute (5) Confusion Problem: Acute (6) Hyponatremia Problem: Acute (7) CKD (chronic kidney disease) stage 3, GFR 30-59 ml/min Problem: Acute (8) HTN (hypertension) Problem: Acute Qualifiers: Hypertension type: essential hypertension Qualified Code(s): I10 - Essential (primary) hypertension (9) HLD (hyperlipidemia) Problem: Acute (10) Metabolic encephalopathy Problem: Acute (11) Elevated troponin Problem: Acute Hospital Course: 84-year-old male with a past medical history of CKD 3, hypertension, hyper lipidemia, ARTEMIO, pulmonary fibrosis presents from home with altered mental status and fever. Patient was recently discharged from the hospital yesterday after being admitted for Covid. In the emergency room he received a CT scan that was negative for acute hemorrhage or mass effect. Blood work was positive for hyponatremia at 125. He received IV fluid hydration and blood work this morning improved to 127. Etiology of the altered mental status may be multifactorial secondary to acute hyponatremia, COVID-19 infection and fever. Sodium has improved. He has been afebrile for the past 24 hours. Patient had an abnormal EKG with elevated troponin on 02/23/2020. Per the physician covering at the time the family did not want any aggressive management. He should follow-up with a strap sewer as an outpatient. Today he is feeling well and has no complaints. He denies chest pain or shortness of breath. He is stable to be discharged home today. Procedures Performed: none Results and Findings: Lab Pending Results 02/21/20 01:05: WBC 7.0, RBC 4.63 L, Hgb 15.0, Hct 44.2, MCV 95.5, MCH 32.4 H, MCHC 33.9, RDW 12.3, Plt Count 204, MPV 11.1, Immature Gran % (Auto) 0.40, Immature Gran # (Auto) 0.03, Neutrophils % 77.8 H, Lymphocytes % 14.2 L, Monocytes % 7.5, Eosinophils % 0.1, Basophils % 0.0, Nucleated RBC % 0.0, Neutrophils # 5.4, Lymphocytes # 0.99 L, Monocytes # 0.5, Eosinophils # 0.0, Absolute Basophils 0.0 02/21/20 01:05: Sodium 125 L, Plasma Sodium 126 L, Potassium 4.0, Chloride 92 L, Carbon Dioxide 27.1, Anion Gap 9.9, BUN 23, Creatinine 1.40, Est GFR (Non-Af Amer) 52 L, BUN/Creatinine Ratio 16.4, Random Glucose 143 H, Calcium 8.1, Calcium Adj for Albumin 8.6, Total Bilirubin 0.4, AST 75 H, ALT 60, Alkaline Phosphatase 56, Troponin I 0.058, Total Protein 7.4, Albumin 3.0 L 02/21/20 06:44: WBC 7.3, RBC 4.57 L, Hgb 14.7, Hct 43.4, MCV 95.0, MCH 32.2 H, MCHC 33.9, RDW 12.3, Plt Count 188, MPV 10.8, Immature Gran % (Auto) 0.40, Immature Gran # (Auto) 0.03, Neutrophils % 78.0 H, Lymphocytes % 14.5 L, Monocytes % 7.0, Eosinophils % 0.1, Basophils % 0.0, Nucleated RBC % 0.0, Neutrophils # 5.7, Lymphocytes # 1.06 L, Monocytes # 0.5, Eosinophils # 0.0, Absolute Basophils 0.0 02/21/20 06:44: Sodium 127 L, Plasma Sodium 127 L, Potassium 3.8, Chloride 94 L, Carbon Dioxide 24.9, Anion Gap 11.9, BUN 23, Creatinine 1.28, Est GFR (Non-Af Amer) 57 L, BUN/Creatinine Ratio 18.0, Random Glucose 130 H, Calcium 8.2, Calcium Adj for Albumin 8.8, Total Bilirubin 0.5, AST 71 H, ALT 60, Alkaline Phosphatase 50, Total Protein 7.2, Albumin 2.9 L 02/22/20 06:40: WBC 7.7, RBC 4.71, Hgb 15.2, Hct 45.2, MCV 96.0, MCH 32.3 H, MCHC 33.6, RDW 12.4, Plt Count 191, MPV 10.7, Immature Gran % (Auto) 0.80 H, Immature Gran # (Auto) 0.06 H, Neutrophils % 81.4 H, Lymphocytes % 11.7 L, Monocytes % 6.0, Eosinophils % 0.0, Basophils % 0.1, Nucleated RBC % 0.0, Neutrophils # 6.3 H, Lymphocytes # 0.90 L, Monocytes # 0.5, Eosinophils # 0.0, Absolute Basophils 0.0 02/22/20 06:40: Sodium 130 L, Plasma Sodium 130, Potassium 4.1, Chloride 97, Carbon Dioxide 25.8, Anion Gap 11.3, BUN 24 H, Creatinine 1.27, Est GFR (Non-Af Amer) 58 L, BUN/Creatinine Ratio 18.9, Random Glucose 128 H, Calcium 8.1, Calcium Adj for Albumin 8.8, Total Bilirubin 0.5, AST 70 H, ALT 60, Alkaline Phosphatase 50, Total Protein 7.2, Albumin 2.7 L 02/22/20 23:50: pCO2 29.7 L, pO2 62.4 L, HCO3 17.1 L, Total CO2 18.0 L, Base Excess -6.3 L, ABG pH 7.38, ABG O2 Sat (Measured) 91.9 L 02/23/20 01:05: Troponin I 0.275 H* 02/23/20 06:55: WBC 13.6 H D, RBC 4.38 L, Hgb 14.3, Hct 41.6 L, MCV 95.0, MCH 32.6 H, MCHC 34.4, RDW 12.6, Plt Count 198, MPV 10.7, Immature Gran % (Auto) 1.10 H, Immature Gran # (Auto) 0.15 H, Neutrophils % 88.9 H, Lymphocytes % 6.2 L, Monocytes % 3.7, Eosinophils % 0.0, Basophils % 0.1, Nucleated RBC % 0.0, Neutrophils # 12.1 H, Lymphocytes # 0.85 L, Monocytes # 0.5, Eosinophils # 0.0, Absolute Basophils 0.0 02/23/20 06:55: Sodium 129 L, Plasma Sodium 131, Potassium 4.5, Chloride 97, Carbon Dioxide 22.9 L, Anion Gap 13.6, BUN 28 H, Creatinine 1.24, Est GFR (Non- Af Amer) 59 L, BUN/Creatinine Ratio 22.6 H, Random Glucose 206 H D, Calcium 7.8 L, Calcium Adj for Albumin 8.8, Total Bilirubin 0.5, AST 67 H, ALT 70 H, Alkaline Phosphatase 44 L, Total Protein 6.3, Albumin 2.3 L 02/23/20 06:55: Troponin I 2.144 H* 02/24/20 10:08: WBC 11.1 H, RBC 4.42 L, Hgb 14.2, Hct 41.3 L, MCV 93.4, MCH 32.1 H, MCHC 34.4, RDW 12.5, Plt Count 224, MPV 10.5, Immature Gran % (Auto) 0.90 H, Immature Gran # (Auto) 0.10 H, Neutrophils % 86.8 H, Lymphocytes % 7.5 L, Monocytes % 4.4, Eosinophils % 0.2, Basophils % 0.2, Nucleated RBC % 0.0, Neutrophils # 9.7 H, Lymphocytes # 0.83 L, Monocytes # 0.5, Eosinophils # 0.0, Absolute Basophils 0.0 02/24/20 10:08: Sodium 128 L, Plasma Sodium 130, Potassium 4.3, Chloride 93 L, Carbon Dioxide 24.9, Anion Gap 14.4 H, BUN 29 H, Creatinine 1.27, Est GFR (Non- Af Amer) 58 L, BUN/Creatinine Ratio 22.8 H, Random Glucose 239 H, Calcium 8.3, Calcium Adj for Albumin 9.1, Total Bilirubin 0.8, AST 58 H, ALT 71 H, Alkaline Phosphatase 48 L, Total Protein 7.1, Albumin 2.6 L 02/25/20 06:20: WBC 8.1 D, RBC 4.22 L, Hgb 13.5, Hct 39.7 L, MCV 94.1, MCH 32.0 H, MCHC 34.0, RDW 12.1, Plt Count 254, MPV 10.8, Neutrophils % (Manual) 83 H, Band Neuts % (Manual) 1, Lymphocytes % (Manual) 10 L, Monocytes % (Manual) 5, Immature Granulocytes 1, Neutrophils # (Manual) 6.7 H, Lymphocytes # (Manual) 0.8 L, Monocytes # (Manual) 0.4, Platelet Estimate Normal, RBC Morphology Normal 02/25/20 06:20: Sodium 128 L, Plasma Sodium 130, Potassium 4.5, Chloride 96 L, Carbon Dioxide 24.2, Anion Gap 12.3, BUN 25 H, Creatinine 1.00, Est GFR (Non-Af Amer) 76 D, BUN/Creatinine Ratio 25.0 H, Random Glucose 202 H, Calcium 8.2, Calcium Adj for Albumin 9.3, Total Bilirubin 0.6, AST 64 H, ALT 90 H, Alkaline Phosphatase 46 L, Total Protein 6.2, Albumin 2.2 L Discharge Location: Home Disposition: Home self-care Condition: Stable Discharge Activity: Activity as tolerated Discharge Diet: General/regular food Referrals: Kyle Ji MD [Primary Care Provider] - Problem Oriented Discharge Instructions to Patient/Family: COVID-19 Additional Patient Instructions (free text): Refer to Cardiology for CAD. Complete Home Medications List: Complete Home Medication List: Aspirin [Aspirin EC] 81 mg PO DAILY 02/18/20 Clopidogrel Bisulfate [Plavix] 75 mg PO DAILY 02/18/20 Losartan Potassium [Cozaar] 100 mg PO 02/18/20 Multivitamin [Multivitamins] 1 ea PO DAILY 02/18/20 Pravastatin Sodium [Pravachol] 40 mg PO 02/18/20 Promethazine HCl [Phenergan Syrup] 6.25 mg PO 02/18/20 Triamcinolone Acetonide [Kenalog 0.025% Cream] 1 appl TOPICAL BID 02/18/20 Dexamethasone 6 mg PO DAILY #5 tab 02/20/20 Forms: Patient Portal Registration
[2020-02-25] MEDS: ENOXAPARIN SODIUM 40 MG/0.4 ML SYRG SC SCH (12:42)
[2020-02-25 15:40] VITALS: BP 128/74
== END 2020-02-25 16:50 | disposition home or self-care (01) | DRG 177 ==
LOC: MS 23:56 → ER 23:56 → MS 02-21 05:44
PROVIDERS: ADMIT Internal Medicine; ATTEND Family Medicine
DX: G93.41 Metabolic encephalopathy; E78.5 Hyperlipidemia, unspecified; R41.0 Disorientation, unspecified; I21.09 ST elevation (STEMI) myocardial infarction involving other coronary artery of anterior wall; I13.0 Hypertensive heart and chronic kidney disease with heart failure and stage 1 through stage 4 chronic kidney disease, or unspecified chronic kidney disease; N18.30 Chronic kidney disease, stage 3 unspecified; U07.1 COVID-19; I50.9 Heart failure, unspecified; G47.33 Obstructive sleep apnea (adult) (pediatric); E87.1 Hypo-osmolality and hyponatremia; J84.10 Pulmonary fibrosis, unspecified

== ENCOUNTER 2020-02-29 10:57 | Inpatient (IN) ==
[2020-02-29] MEDS ORDERED: NORMAL SALINE 1,000 ML IV ONE (11:10)
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
[2020-02-29 11:54] LABS: Hematocrit 42.7 % (42.0-52.0); Hemoglobin 14.7 gm/dL (13.5-18.0); Mean Cell Volume 94.1 fl (78-100); Mean Corpuscular Hemoglobin 32.4 pg (27-31); Mean Corpuscular Hgb Conc 34.4 g/dl (32-36); Mean Platelet Volume 10.1 fl (8-11.3); Neutrophil # 15.4 K/mm3 (1.3-6.0); Neutrophil % 89.4 % (42-75.0); Platelet Count 268 K/mm3 (150-450); Red Blood Count 4.54 M/mm3 (4.7-6.0); Red Cell Distribution Width 12.5 % (11.5-14.0); White Blood Count 17.2 K/mm3 (4.0-10.5)
[2020-02-29 12:00] LABS: Prothrombin Time (Patient) 13.1 Seconds (9.1-10.7)
[2020-02-29 12:01] LABS: INR 1.34 INR (0.92-1.08); Partial Thrombolplastin Time 23.6 Seconds (24-32)
[2020-02-29 12:05] LABS: Albumin * 2.2 gm/dl (3.4-5.0); Anion Gap 15.2 mmol/L (6.8-13.8); BUN/Creatinine Ratio 18.3 (9.0-21.6); Ca. Corrected For Albumin 9.3 mg/dL (8.4-10.2); Calcium * 8.2 mg/dL (7.9-10.9); Carbon Dioxide 21.1 mmol/L (24-32.6); Potassium 4.3 mmol/L (3.4-4.6); Total Protein 6.1 gm/dL (6.2-8.2)
[2020-02-29 12:10] LABS: Troponin I 0.349 ng/mL (0.00-0.10)
[2020-02-29] MEDS ORDERED: LEVOFLOXACIN IN DEXTROSE 5 % 500 MG/100 ML BAG IV SCH (12:30)
[2020-02-29] MEDS ORDERED: ENOXAPARIN SODIUM 100 MG/ML SYRG SC SCH (12:45)
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
[2020-02-29] MEDS: DEXAMETHASONE SODIUM PHOSP/PF 10 MG/ML VIAL IV SCH (15:12)
[2020-02-29] MEDS: ENOXAPARIN SODIUM 80 MG/0.8 ML DISP.SYRIN SC SCH (15:16)
[2020-02-29 15:23] LABS: Urine Bilirubin Negative (NEGATIVE); Urine Blood Negative /ul (NEGATIVE); Urine Ketone 15 mg/dL (NEGATIVE); Urine Nitrite Negative (NEGATIVE); Urine Protein 15 mg/dL (NEGATIVE); Urine Specific Gravity 1.015 SP.GR. (1.005-1.030); Urine Urobilinogen Normal (NORMAL)
[2020-02-29 16:10] LABS: Urine Appearance Clear (CLEAR); Urine Color Dark Yellow
[2020-02-29 16:11] LABS: Urine Bacteria 1+; Urine RBC None Seen /hpf (0-5); Urine WBC TRACE /hpf (0-5)
[2020-02-29] MEDS ORDERED: PROMETHAZINE HCL 6.25 MG/5 ML SYRUP PO PRN (16:29)
[2020-02-29] MEDS: SIMVASTATIN 20 MG TABLET PO SCH (20:43)
[2020-03-01] MEDS: ENOXAPARIN SODIUM 80 MG/0.8 ML DISP.SYRIN SC SCH ×2 (01:01→13:16)
[2020-03-01 06:53] LABS: Hematocrit 41.4 % (42.0-52.0); Hemoglobin 14.1 gm/dL (13.5-18.0); Mean Cell Volume 95.2 fl (78-100); Mean Corpuscular Hemoglobin 32.4 pg (27-31); Mean Corpuscular Hgb Conc 34.1 g/dl (32-36); Mean Platelet Volume 10.3 fl (8-11.3); Neutrophil # 11.3 K/mm3 (1.3-6.0); Neutrophil % 86.9 % (42-75.0); Platelet Count 289 K/mm3 (150-450); Red Blood Count 4.35 M/mm3 (4.7-6.0); Red Cell Distribution Width 12.7 % (11.5-14.0)
[2020-03-01 07:10] LABS: Albumin * 2.1 gm/dl (3.4-5.0); Anion Gap 14.9 mmol/L (6.8-13.8); BUN/Creatinine Ratio 19.4 (9.0-21.6); Bilirubin, Total 0.7 mg/dL (0.0-1.1); Ca. Corrected For Albumin 9.6 mg/dL (8.4-10.2); Calcium * 8.4 mg/dL (7.9-10.9); Carbon Dioxide 20.2 mmol/L (24-32.6); Potassium 4.1 mmol/L (3.4-4.6); Total Protein 6.2 gm/dL (6.2-8.2)
[2020-03-01] MEDS: DEXAMETHASONE SODIUM PHOSP/PF 10 MG/ML VIAL IV SCH (08:38)
[2020-03-01] MEDS: LOSARTAN POTASSIUM 50 MG TABLET PO SCH (08:38)
[2020-03-01] MEDS: ASPIRIN 81 MG TABLET.DR PO SCH (08:38)
[2020-03-01] MEDS: CLOPIDOGREL BISULFATE 75 MG TABLET PO SCH (08:39)
--- NOTE | 2020-03-01 10:26 | PN ---
Subjective - Date and Time Seen Date: 03/01/20 Time: 10:20 Subjective Narrative: Feels better this morning. Hasn't walked yet. Saw an upsetting commercial, and ruminated on it for a while. Doesn't think he needs anxiety medicine, however. Is eating and drinking. Objective - Review of Systems Generalized/Overall Review: Denies: Fever Respiratory: Reports: Shortness of Breath, Other. Denies: Cough Cardiac: Denies: Chest Pain, Edema Abdominal: Denies: Vomiting Genitourinary Symptoms: Reports: No Symptoms Reported - Vitals Vitals: Last Vital Signs Temp 35 C L 03/01/20 07:19 Pulse 92 03/01/20 08:38 Resp 24 H 03/01/20 07:19 BP 114/72 03/01/20 08:38 Pulse Ox 98 03/01/20 07:19 - Abnormal Lab Findings Abnormal Lab Findings: Abnormal Lab Results 02/29/20 02/29/20 02/29/20 Range/Units 11:36 11:36 11:36 WBC 17.2 H (4.0-10.5) K/mm3 RBC 4.54 L (4.7-6.0) M/mm3 Hct (42.0-52.0) % MCH 32.4 H (27-31) pg Immature Gran % (Auto) 2.20 H (0.001-0.429) % Immature Gran # (Auto) 0.37 H (0.000-0.0310) K/mm3 Neutrophils % 89.4 H (42-75.0) % Lymphocytes % 6.0 L (20-51) % Neutrophils # 15.4 H (1.3-6.0) K/mm3 Lymphocytes # 1.03 L (1.5-3.5) k/mm3 PT 13.1 H (9.1-10.7) Seconds INR (Anticoag Therapy) 1.34 H (0.92-1.08) INR PTT ([facility]) 23.6 L (24-32) Seconds D-Dimer (0.19-0.49) ug/mL Sodium 130 L (132-142) mmol/L Carbon Dioxide 21.1 L (24-32.6) mmol/L Anion Gap 15.2 H (6.8-13.8) mmol/L Random Glucose 180 H (70-110) mg/dL Lactic Acid, Venous (0.4-2.0) mmol/L Troponin I 0.349 H* (0.00-0.10) ng/mL B-Natriuretic Peptide 17111 H (5-650) pg/mL Total Protein 6.1 L (6.2-8.2) gm/dL Albumin 2.2 L (3.4-5.0) gm/dl Urine Protein (NEGATIVE) mg/dL Urine Bacteria (NONE) 02/29/20 02/29/20 02/29/20 Range/Units 11:36 11:36 14:50 WBC (4.0-10.5) K/mm3 RBC (4.7-6.0) M/mm3 Hct (42.0-52.0) % MCH (27-31) pg Immature Gran % (Auto) (0.001-0.429) % Immature Gran # (Auto) (0.000-0.0310) K/mm3 Neutrophils % (42-75.0) % Lymphocytes % (20-51) % Neutrophils # (1.3-6.0) K/mm3 Lymphocytes # (1.5-3.5) k/mm3 PT (9.1-10.7) Seconds INR (Anticoag Therapy) (0.92-1.08) INR PTT ([facility]) (24-32) Seconds D-Dimer Greater than 10 H (0.19-0.49) ug/mL Sodium (132-142) mmol/L Carbon Dioxide (24-32.6) mmol/L Anion Gap (6.8-13.8) mmol/L Random Glucose (70-110) mg/dL Lactic Acid, Venous 2.6 H* (0.4-2.0) mmol/L Troponin I (0.00-0.10) ng/mL B-Natriuretic Peptide (5-650) pg/mL Total Protein (6.2-8.2) gm/dL Albumin (3.4-5.0) gm/dl Urine Protein 15 H (NEGATIVE) mg/dL Urine Bacteria 1+ H (NONE) 03/01/20 03/01/20 Range/Units 06:50 06:50 WBC 13.0 H D (4.0-10.5) K/mm3 RBC 4.35 L (4.7-6.0) M/mm3 Hct 41.4 L (42.0-52.0) % MCH 32.4 H (27-31) pg Immature Gran % (Auto) 1.90 H (0.001-0.429) % Immature Gran # (Auto) 0.24 H (0.000-0.0310) K/mm3 Neutrophils % 86.9 H (42-75.0) % Lymphocytes % 8.8 L (20-51) % Neutrophils # 11.3 H (1.3-6.0) K/mm3 Lymphocytes # 1.14 L (1.5-3.5) k/mm3 PT (9.1-10.7) Seconds INR (Anticoag Therapy) (0.92-1.08) INR PTT ([facility]) (24-32) Seconds D-Dimer (0.19-0.49) ug/mL Sodium 130 L (132-142) mmol/L Carbon Dioxide 20.2 L (24-32.6) mmol/L Anion Gap 14.9 H (6.8-13.8) mmol/L Random Glucose 212 H (70-110) mg/dL Lactic Acid, Venous (0.4-2.0) mmol/L Troponin I (0.00-0.10) ng/mL B-Natriuretic Peptide (5-650) pg/mL Total Protein (6.2-8.2) gm/dL Albumin 2.1 L (3.4-5.0) gm/dl Urine Protein (NEGATIVE) mg/dL Urine Bacteria (NONE) - Exam Constitutional: Present: Alert, Cooperative, No distress Respiratory: Present: normal breath sounds, other - tachypneic Cardiovascular/Chest: Present: regular rate, rhythm Abdomen: Present: soft 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 Absent: lower extremity edema Eye contact: Present: cooperative, good eye contact Assessment/Plan Plan Narrative: He was diagnosed positive for COVID on 02/17, and approximately day 16 of symptoms. This is his 3rd hospitalization since then. During his 2nd hospitalization, he experienced an acute [place], and opted for medication mgt only. On admission yesterday, his D dimer was greater than 10, increasing the suspicion for PE. He's being treated for COVID pneumonia with secondary bacterial pneumonia, as well as possible PE. Continue decadron, levaquin, and treatment dose lovenox. He's feeling better today than yesterday, and his oxygen requirement is decreasing, currently at 1 L, but he is tachypneic. WBC improving, from 17.3 to 13.0. - Problems/Diagnosis (1) COVID-19 Problem: Acute (2) CHF (congestive heart failure) Problem: Chronic (3) Fatigue Problem: Acute (4) Lactic acidosis Problem: Resolved (5) Elevated brain natriuretic peptide (BNP) level Problem: Acute (6) Hyponatremia Problem: Acute (7) CKD (chronic kidney disease) stage 3, GFR 30-59 ml/min Problem: Acute (8) HTN (hypertension) Problem: Acute Qualifiers: (9) Bilateral pneumonia Problem: Acute (10) D-dimer, elevated Problem: Acute (11) Suspected pulmonary embolism Problem: Acute
[2020-03-01] MEDS: LEVOFLOXACIN IN DEXTROSE 5 % 750 MG/150 ML BAG IV SCH (11:44)
[2020-03-01] MEDS: SIMVASTATIN 20 MG TABLET PO SCH (20:02)
[2020-03-02] MEDS: ENOXAPARIN SODIUM 80 MG/0.8 ML DISP.SYRIN SC SCH ×2 (02:18→13:11)
[2020-03-02 07:08] LABS: Hematocrit 41.8 % (42.0-52.0); Hemoglobin 14.3 gm/dL (13.5-18.0); Mean Cell Volume 95.2 fl (78-100); Mean Corpuscular Hemoglobin 32.6 pg (27-31); Mean Corpuscular Hgb Conc 34.2 g/dl (32-36); Mean Platelet Volume 10.3 fl (8-11.3); Neutrophil # 12.9 K/mm3 (1.3-6.0); Neutrophil % 81.7 % (42-75.0); Platelet Count 330 K/mm3 (150-450); Red Blood Count 4.39 M/mm3 (4.7-6.0); Red Cell Distribution Width 12.7 % (11.5-14.0); White Blood Count 15.8 K/mm3 (4.0-10.5)
[2020-03-02 07:28] LABS: Albumin * 2.2 gm/dl (3.4-5.0); Anion Gap 12.7 mmol/L (6.8-13.8); Bilirubin, Total 0.7 mg/dL (0.0-1.1); Ca. Corrected For Albumin 9.5 mg/dL (8.4-10.2); Calcium * 8.4 mg/dL (7.9-10.9); Carbon Dioxide 22.4 mmol/L (24-32.6); Potassium 4.1 mmol/L (3.4-4.6); Total Protein 6.1 gm/dL (6.2-8.2)
[2020-03-02] MEDS: DEXAMETHASONE SODIUM PHOSP/PF 10 MG/ML VIAL IV SCH (09:07)
[2020-03-02] MEDS: CLOPIDOGREL BISULFATE 75 MG TABLET PO SCH (09:07)
[2020-03-02] MEDS: ASPIRIN 81 MG TABLET.DR PO SCH (09:07)
[2020-03-02] MEDS: LOSARTAN POTASSIUM 50 MG TABLET PO SCH (09:07)
--- NOTE | 2020-03-02 09:18 | PN ---
Subjective - Date and Time Seen Date: 03/02/20 Time: 10:00 Subjective Narrative: He thought he was feeling better, but got up to go to the bathroom and had difficulty getting back to the bed. Feels drained. Currently oxygenating at 95% on one L via NC. Objective - Review of Systems Generalized/Overall Review: Reports: Weakness Respiratory: Denies: Cough, Shortness of Breath Cardiac: Denies: Chest Pain, Edema Abdominal: Denies: Nausea Genitourinary Symptoms: Denies: Dysuria - Vitals Vitals: Last Vital Signs Temp 35.5 C L 03/02/20 07:32 Pulse 82 03/02/20 09:07 Resp 22 H 03/02/20 07:32 BP 124/87 03/02/20 09:07 Pulse Ox 92 L 03/02/20 07:32 - Abnormal Lab Findings Abnormal Lab Findings: Abnormal Lab Results 03/02/20 03/02/20 Range/Units 06:45 06:45 WBC 15.8 H D (4.0-10.5) K/mm3 RBC 4.39 L (4.7-6.0) M/mm3 Hct 41.8 L (42.0-52.0) % MCH 32.6 H (27-31) pg Immature Gran % (Auto) 2.40 H (0.001-0.429) % Immature Gran # (Auto) 0.38 H (0.000-0.0310) K/mm3 Neutrophils % 81.7 H (42-75.0) % Lymphocytes % 11.1 L (20-51) % Neutrophils # 12.9 H (1.3-6.0) K/mm3 Sodium 131 L (132-142) mmol/L Carbon Dioxide 22.4 L (24-32.6) mmol/L Random Glucose 151 H (70-110) mg/dL Total Protein 6.1 L (6.2-8.2) gm/dL Albumin 2.2 L (3.4-5.0) gm/dl - Exam Constitutional: Present: Alert, Cooperative, No distress, Other - appears fatigued Respiratory: Present: lungs clear, normal breath sounds, other - is oxygenating in low 90's on 1L Cardiovascular/Chest: Present: regular rate, rhythm Abdomen: Present: soft, nontender Extremity: Absent: lower extremity edema Eye contact: Present: cooperative, good eye contact Assessment/Plan Plan Narrative: He was diagnosed positive for COVID on 02/17, so he is approximately day 17 of symptoms. This is his 3rd hospitalization since then. During his 2nd hospitalization, he experienced an acute [place], and opted for medication mgt only. On admission 02/28, his D dimer was greater than 10, increasing the suspicion for PE. He's being treated for COVID pneumonia with secondary bacterial pneumonia, as well as possible PE. He reports feeling slightly worse this morning, with significant fatigue. I'd like to get a CT angiography to evaluate for PE, but we are unable to obtain adequate IV access. Will check an echocardiogram tomorrow to assess his ejection fraction and pulmonary artery pressure. If normal pulmonary artery pressure and normal right ventricle, then acute PE is less likely. Continue treatment dose lovenox. His oxygen requirement is minimal, currently 1L via NC. His BNP was elevated on admission, so there was suspicion for CHF, though he does not appear fluid overloaded on exam. Elevated BNP can also come from heart strain. Echo pending to assess his EF. Anecdotally, patients seem to do better when they are a bit dry, so will administer 20 mg lasix daily. His WBC increased today, from 13.0 to 15.8 today. He is currently being given levaquin. Is afebrile. The increase could be due to steroids, though he's been on steroids for several days. Recheck CBC in am. - Problems/Diagnosis (1) COVID-19 Problem: Acute (2) CHF (congestive heart failure) Problem: Chronic (3) Fatigue Problem: Acute (4) Lactic acidosis Problem: Resolved (5) Elevated brain natriuretic peptide (BNP) level Problem: Acute (6) Hyponatremia Problem: Acute (7) CKD (chronic kidney disease) stage 3, GFR 30-59 ml/min Problem: Acute (8) HTN (hypertension) Problem: Acute Qualifiers: (9) Bilateral pneumonia Problem: Acute (10) D-dimer, elevated Problem: Acute (11) Suspected pulmonary embolism Problem: Acute
[2020-03-02] MEDS ORDERED: FUROSEMIDE 10 MG/ML VIAL IV ONE (09:47)
[2020-03-02] MEDS: LEVOFLOXACIN IN DEXTROSE 5 % 750 MG/150 ML BAG IV SCH (11:33)
[2020-03-02] MEDS ORDERED: FUROSEMIDE 10 MG/ML VIAL IV SCH (12:15)
[2020-03-02] MEDS: SIMVASTATIN 20 MG TABLET PO SCH (21:05)
[2020-03-03] MEDS: ENOXAPARIN SODIUM 80 MG/0.8 ML DISP.SYRIN SC SCH (01:48)
[2020-03-03 06:59] LABS: Hematocrit 44.5 % (42.0-52.0); Hemoglobin 14.9 gm/dL (13.5-18.0); Mean Cell Volume 95.3 fl (78-100); Mean Corpuscular Hemoglobin 31.9 pg (27-31); Mean Corpuscular Hgb Conc 33.5 g/dl (32-36); Mean Platelet Volume 10.2 fl (8-11.3); Neutrophil # 14.2 K/mm3 (1.3-6.0); Neutrophil % 83.3 % (42-75.0); Platelet Count 336 K/mm3 (150-450); Red Blood Count 4.67 M/mm3 (4.7-6.0); Red Cell Distribution Width 12.8 % (11.5-14.0); White Blood Count 17.1 K/mm3 (4.0-10.5)
[2020-03-03 07:12] LABS: Albumin * 2.4 gm/dl (3.4-5.0); Anion Gap 13.5 mmol/L (6.8-13.8); Bilirubin, Total 0.8 mg/dL (0.0-1.1); Ca. Corrected For Albumin 9.5 mg/dL (8.4-10.2); Calcium * 8.5 mg/dL (7.9-10.9); Carbon Dioxide 24.4 mmol/L (24-32.6); Potassium 3.9 mmol/L (3.4-4.6); Total Protein 6.4 gm/dL (6.2-8.2)
--- NOTE | 2020-03-03 08:23 | PN ---
Subjective - Date and Time Seen Date: 03/03/20 Time: 07:20 Subjective Narrative: He is saturating on room air. Feels a bit stronger. No hallucinations since yesterday, but these have started with this hospitalization. Declines walker or cane for when he goes home, but does agree with home health. Objective - Review of Systems Generalized/Overall Review: Reports: Weakness. Denies: Fever Respiratory: Reports: Shortness of Breath. Denies: Cough Cardiac: Denies: Chest Pain, Edema Abdominal: Denies: Abdominal Pain, Constipation Genitourinary Symptoms: Reports: No Symptoms Reported Musculoskeletal Complaints: Reports: No Symptoms Reported - Vitals Vitals: Last Vital Signs Temp 36.1 C 03/03/20 06:27 Pulse 93 03/03/20 06:27 Resp 28 H 03/03/20 06:27 BP 136/79 03/03/20 06:27 Pulse Ox 94 03/03/20 06:27 - Abnormal Lab Findings Abnormal Lab Findings: Abnormal Lab Results 03/03/20 03/03/20 Range/Units 06:40 06:40 WBC 17.1 H (4.0-10.5) K/mm3 RBC 4.67 L (4.7-6.0) M/mm3 MCH 31.9 H (27-31) pg Immature Gran % (Auto) 1.40 H (0.001-0.429) % Immature Gran # (Auto) 0.24 H (0.000-0.0310) K/mm3 Neutrophils % 83.3 H (42-75.0) % Lymphocytes % 10.6 L (20-51) % Neutrophils # 14.2 H (1.3-6.0) K/mm3 Sodium 131 L (132-142) mmol/L Random Glucose 142 H (70-110) mg/dL AST 52 H (0-48) U/L ALT 74 H (19-67) U/L Albumin 2.4 L (3.4-5.0) gm/dl - Exam Constitutional: Present: Alert, Cooperative, No distress Respiratory: Present: normal breath sounds, other - room air Cardiovascular/Chest: Present: regular rate, rhythm Abdomen: Present: nontender 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 Absent: lower extremity edema Eye contact: Present: cooperative, good eye contact Assessment/Plan Plan Narrative: He was diagnosed positive for COVID on 02/17, so he is approximately day 18 of symptoms. This is his 3rd hospitalization since then. During his 2nd hospitalization, he experienced an acute [place], and opted for medication mgt only. On this admission, which was 02/28, his D dimer was greater than 10, increasing the suspicion for PE. He's being treated for COVID pneumonia with secondary bacterial pneumonia, as well as possible PE. Attempted to obtain CT angiograhy of his chest to assess for PE, but unable to get adequate IV access for a proper study. Will check an echocardiogram today to assess his ejection fraction and pulmonary artery pressure. If normal pulmonary artery pressure and normal right ventricle, then acute PE is less likely. He has been on treatment dose lovenox, and will switch to eliquis today. His BNP was elevated on admission, so there was suspicion for CHF, though he does not appear fluid overloaded on exam. Elevated BNP can also come from heart strain. Echo pending to assess his EF. Anecdotally, patients seem to do better when they are a bit dry, so will administer 20 mg lasix daily. Unfortunately, his WBC continues to increase, from 15.8 to 17.1 today. Unclear etiology. He is currently being given levaquin. Is afebrile. He feels better, however. The levaquin was started to cover pneumonia, but his lung sounds are clear, he is not coughing, and is afebrile. Will DC levaquin and recheck in am. - Problems/Diagnosis (1) COVID-19 Problem: Acute (2) CHF (congestive heart failure) Problem: Suspected (3) Fatigue Problem: Resolved (4) Lactic acidosis Problem: Resolved (5) Elevated brain natriuretic peptide (BNP) level Problem: Acute (6) Hyponatremia Problem: Acute (7) CKD (chronic kidney disease) stage 3, GFR 30-59 ml/min Problem: Acute (8) HTN (hypertension) Problem: Acute Qualifiers: (9) Bilateral pneumonia Problem: Suspected (10) D-dimer, elevated Problem: Acute (11) Suspected pulmonary embolism Problem: Acute
[2020-03-03] MEDS: ASPIRIN 81 MG TABLET.DR PO SCH (08:59)
[2020-03-03] MEDS: LOSARTAN POTASSIUM 50 MG TABLET PO SCH (08:59)
[2020-03-03] MEDS: CLOPIDOGREL BISULFATE 75 MG TABLET PO SCH (08:59)
[2020-03-03] MEDS: DEXAMETHASONE SODIUM PHOSP/PF 10 MG/ML VIAL IV SCH (09:01)
[2020-03-03] MEDS: FUROSEMIDE 10 MG/ML VIAL IV SCH (09:02)
[2020-03-03] MEDS: APIXABAN 5 MG TABLET PO SCH ×2 (17:23→20:28)
[2020-03-03] MEDS: SIMVASTATIN 20 MG TABLET PO SCH (20:28)
[2020-03-04 07:00] LABS: Hematocrit 44.8 % (42.0-52.0); Hemoglobin 15.3 gm/dL (13.5-18.0); Mean Cell Volume 94.1 fl (78-100); Mean Corpuscular Hemoglobin 32.1 pg (27-31); Mean Corpuscular Hgb Conc 34.2 g/dl (32-36); Mean Platelet Volume 9.9 fl (8-11.3); Platelet Count 310 K/mm3 (150-450); Red Blood Count 4.76 M/mm3 (4.7-6.0); Red Cell Distribution Width 12.7 % (11.5-14.0); White Blood Count 16.9 K/mm3 (4.0-10.5)
[2020-03-04 07:07] LABS: Total Cells Counted 100
[2020-03-04 07:18] LABS: Eosinophil 1 % (0-3); Lymphocyte 9 % (20-51); Monocyte 5 % (0-9); Neutrophil 85 % (42-75); Neutrophil # 14.4 K/mm3 (1.3-6.0)
[2020-03-04 07:19] LABS: Platelet Estimate Normal (NORMAL); RBC Morphology Normal (NORMAL)
[2020-03-04] MEDS: ASPIRIN 81 MG TABLET.DR PO SCH (08:35)
[2020-03-04] MEDS: LOSARTAN POTASSIUM 50 MG TABLET PO SCH (08:35)
[2020-03-04] MEDS: DEXAMETHASONE SODIUM PHOSP/PF 10 MG/ML VIAL IV SCH (08:36)
[2020-03-04] MEDS: CLOPIDOGREL BISULFATE 75 MG TABLET PO SCH (08:36)
[2020-03-04] MEDS: FUROSEMIDE 10 MG/ML VIAL IV SCH (08:36)
--- NOTE | 2020-03-04 08:37 | PN ---
Subjective - Date and Time Seen Date: 03/04/20 Time: 07:30 Subjective Narrative: He is feeling better, but still has some shortness of breath. Objective - Review of Systems Generalized/Overall Review: Reports: Weakness Respiratory: Reports: Shortness of Breath Cardiac: Denies: Chest Pain, Edema Abdominal: Reports: No Symptoms Reported Genitourinary Symptoms: Reports: No Symptoms Reported Neurological: Reports: No Symptoms Reported - Vitals Vitals: Last Vital Signs Temp 36.6 C 03/04/20 02:49 Pulse 75 03/04/20 02:49 Resp 18 03/04/20 02:49 BP 140/78 03/04/20 02:49 Pulse Ox 99 03/04/20 02:49 - Abnormal Lab Findings Abnormal Lab Findings: Abnormal Lab Results 03/04/20 Range/Units 06:52 WBC 16.9 H (4.0-10.5) K/mm3 MCH 32.1 H (27-31) pg Neutrophils % (Manual) 85 H (42-75) % Lymphocytes % (Manual) 9 L (20-51) % Neutrophils # (Manual) 14.4 H (1.3-6.0) K/mm3 - Exam Constitutional: Present: Alert, Cooperative, Elderly Respiratory: Present: normal breath sounds, other - speaks in short sentences Cardiovascular/Chest: Present: regular rate, rhythm Abdomen: Present: soft, nontender Extremity: Absent: lower extremity edema Eye contact: Present: cooperative, good eye contact Assessment/Plan Plan Narrative: He was diagnosed positive for COVID on 02/17, so he is approximately day 19 of symptoms. This is his 3rd hospitalization since then. During his 2nd hospitalization, he experienced an acute [place], and opted for medication mgt only. On this admission, which was 02/28, his D dimer was greater than 10, increasing the suspicion for PE. He has being treated for COVID pneumonia with secondary bacterial pneumonia, as well as possible PE. Attempted to obtain CT angiograhy of his chest to assess for PE, but unable to get adequate IV access for a proper study. Echocardiogram obtained yesterday to assess his ejection fraction and pulmonary artery pressure. If normal pulmonary artery pressure and normal right ventricle, then acute PE is less likely. He has been on treatment dose lovenox, and will switched to eliquis 03/03 in anticipation of DC. His BNP was elevated on admission, so there was suspicion for CHF, though he does not appear fluid overloaded on exam. Elevated BNP can also come from heart strain. Echo obtained to assess his EF, awaiting results. Anecdotally, patients seem to do better when they are a bit dry, so will administer 20 mg lasix daily. He is interested in cardiology consult after DC, and will call his PCP today to start getting this arranged. His WBC has been high, but slightly decreased from yesterday, from 17.1 to 16.9 today. Unclear etiology. Stopped his levaquin yesterday, and symptoms did not increase. Recheck in am. Possible DC home tomorrow with home health. - Problems/Diagnosis (1) COVID-19 Problem: Acute (2) Suspected pulmonary embolism Problem: Acute (3) CHF (congestive heart failure) Problem: Suspected (4) Fatigue Problem: Resolved (5) Lactic acidosis Problem: Resolved (6) Elevated brain natriuretic peptide (BNP) level Problem: Acute (7) Hyponatremia Problem: Acute (8) CKD (chronic kidney disease) stage 3, GFR 30-59 ml/min Problem: Acute (9) HTN (hypertension) Problem: Acute Qualifiers: (10) Bilateral pneumonia Problem: Suspected (11) D-dimer, elevated Problem: Acute
[2020-03-04] MEDS: APIXABAN 5 MG TABLET PO SCH ×2 (08:46→20:37)
[2020-03-04] MEDS: SIMVASTATIN 20 MG TABLET PO SCH (20:37)
[2020-03-05] MEDS: LOSARTAN POTASSIUM 50 MG TABLET PO SCH (09:26)
[2020-03-05] MEDS: DEXAMETHASONE SODIUM PHOSP/PF 10 MG/ML VIAL IV SCH (09:26)
[2020-03-05] MEDS: APIXABAN 5 MG TABLET PO SCH (09:26)
[2020-03-05] MEDS: ASPIRIN 81 MG TABLET.DR PO SCH (09:26)
[2020-03-05] MEDS: CLOPIDOGREL BISULFATE 75 MG TABLET PO SCH (09:27)
[2020-03-05] MEDS: FUROSEMIDE 10 MG/ML VIAL IV SCH (09:27)
[2020-03-05 10:42] LABS: Hemoglobin 16.3 gm/dL (13.5-18.0); Mean Cell Volume 93.8 fl (78-100); Mean Corpuscular Hemoglobin 31.8 pg (27-31); Mean Platelet Volume 9.8 fl (8-11.3); Platelet Count 324 K/mm3 (150-450); Red Blood Count 5.12 M/mm3 (4.7-6.0); Red Cell Distribution Width 12.9 % (11.5-14.0); White Blood Count 22.3 K/mm3 (4.0-10.5)
[2020-03-05 10:45] LABS: Total Cells Counted 100
[2020-03-05 10:59] LABS: Albumin * 2.6 gm/dl (3.4-5.0); Anion Gap 13.6 mmol/L (6.8-13.8); Bilirubin, Total 0.6 mg/dL (0.0-1.1); Ca. Corrected For Albumin 10.1 mg/dL (8.4-10.2); Calcium * 9.3 mg/dL (7.9-10.9); Carbon Dioxide 24.5 mmol/L (24-32.6); Potassium 4.1 mmol/L (3.4-4.6); Total Protein 6.7 gm/dL (6.2-8.2)
[2020-03-05] MEDS ORDERED: NORMAL SALINE 1,000 ML IV PRN (11:40)
--- NOTE | 2020-03-05 11:42 | PN ---
Subjective - Date and Time Seen Date: 03/05/20 Time: 06:45 Subjective Narrative: Patient reports feeling stronger. Has concerns about having available nursing at home. Has a bit of a productive cough. Objective - Review of Systems Generalized/Overall Review: Denies: Fever Respiratory: Reports: Cough Cardiac: Denies: Chest Pain, Edema Abdominal: Reports: No Symptoms Reported Genitourinary Symptoms: Reports: No Symptoms Reported Musculoskeletal Complaints: Reports: No Symptoms Reported - Vitals Vitals: Last Vital Signs Temp 36.1 C 03/05/20 10:00 Pulse 71 03/05/20 10:00 Resp 22 H 03/05/20 10:00 BP 147/70 03/05/20 10:00 Pulse Ox 95 03/05/20 10:00 - Abnormal Lab Findings Abnormal Lab Findings: Abnormal Lab Results 03/05/20 03/05/20 Range/Units 10:32 10:32 WBC 22.3 H D (4.0-10.5) K/mm3 MCH 31.8 H (27-31) pg Sodium 129 L (132-142) mmol/L Chloride 95 L (97-106) mmol/L BUN 31 H (6-23) mg/dL BUN/Creatinine Ratio 29.0 H (9.0-21.6) Random Glucose 258 H D (70-110) mg/dL ALT 72 H (19-67) U/L Albumin 2.6 L (3.4-5.0) gm/dl - Exam Constitutional: Present: Alert, Cooperative, Elderly Respiratory: Present: normal breath sounds, no respiratory distress Cardiovascular/Chest: Present: regular rate, rhythm Abdomen: Present: soft 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 Absent: lower extremity edema Assessment/Plan Plan Narrative: He was diagnosed positive for COVID on 02/17, so he is approximately day 20 of symptoms. This is his 3rd hospitalization since then. During his 2nd hospitalization, he experienced an acute [place], and opted for medication mgt only. On this admission, which was 02/28, his D dimer was greater than 10, increasing the suspicion for PE. He has being treated for COVID pneumonia with secondary bacterial pneumonia. Echo yesterday showed normal right atrium and pulmonary artery pressure, making PE less likely. Will DC eliquis. Unable to obtain sufficient IV access for CT angiogram of his chest to assess for PE. His WBC increased to 22.3 today. Unclear etiology. His glucose is also greater than 300. The decadron could be elevating his glucose, and the acute increase could be causing his leukocytosis. Will DC the decadron, since his COVID symptoms are improving, and the steroid may be causing other adverse effects with his elevated glucose. Will need to recheck CXR, blood cultures, and urine cultures, however. Will restart levaquin, and recheck CBC in am. Novolog started for SSI. A1C was 7.2, indicating he now is considered to have diabetes. - Problems/Diagnosis (1) COVID-19 Problem: Acute (2) Suspected pulmonary embolism Problem: Acute (3) CHF (congestive heart failure) Problem: Suspected (4) Fatigue Problem: Resolved (5) Lactic acidosis Problem: Resolved (6) Elevated brain natriuretic peptide (BNP) level Problem: Acute (7) Hyponatremia Problem: Acute (8) CKD (chronic kidney disease) stage 3, GFR 30-59 ml/min Problem: Acute (9) HTN (hypertension) Problem: Acute Qualifiers: (10) Hyperglycemia Problem: Acute (11) Bilateral pneumonia Problem: Suspected (12) D-dimer, elevated Problem: Acute
[2020-03-05 12:09] LABS: Atypical (Reactive) Lymph 4 % (0-2); Eosinophil 1 % (0-3); Lymphocyte 13 % (20-51); Monocyte 3 % (0-9); Neutrophil 79 % (42-75); Neutrophil # 17.6 K/mm3 (1.3-6.0)
[2020-03-05 12:10] LABS: Platelet Estimate Normal (NORMAL)
[2020-03-05 12:11] LABS: RBC Morphology Normal (NORMAL)
[2020-03-05 13:03] LABS: Hemoglobin A1C 7.2 % (3.80-5.60)
[2020-03-05] MEDS: LEVOFLOXACIN 750 MG TABLET PO SCH (13:45)
[2020-03-05] MEDS: INSULIN LISPRO 100 UNITS/ML VIAL SC SCH ×2 (16:52→20:31)
[2020-03-05] MEDS: SIMVASTATIN 20 MG TABLET PO SCH (20:31)
[2020-03-06 07:16] LABS: Hematocrit 44.8 % (42.0-52.0); Hemoglobin 15.5 gm/dL (13.5-18.0); Mean Cell Volume 95.1 fl (78-100); Mean Corpuscular Hemoglobin 32.9 pg (27-31); Mean Corpuscular Hgb Conc 34.6 g/dl (32-36); Mean Platelet Volume 9.8 fl (8-11.3); Platelet Count 314 K/mm3 (150-450); Red Blood Count 4.71 M/mm3 (4.7-6.0); White Blood Count 19.8 K/mm3 (4.0-10.5)
[2020-03-06 07:19] LABS: Total Cells Counted 100
[2020-03-06 07:34] LABS: Albumin * 2.5 gm/dl (3.4-5.0); Anion Gap 11.7 mmol/L (6.8-13.8); BUN/Creatinine Ratio 29.9 (9.0-21.6); Bilirubin, Total 0.6 mg/dL (0.0-1.1); Ca. Corrected For Albumin 9.9 mg/dL (8.4-10.2); Carbon Dioxide 25.6 mmol/L (24-32.6); Potassium 4.3 mmol/L (3.4-4.6); Total Protein 6.3 gm/dL (6.2-8.2)
[2020-03-06 07:38] LABS: Eosinophil 1 % (0-3); Lymphocyte 12 % (20-51); Monocyte 5 % (0-9); Neutrophil 82 % (42-75); Neutrophil # 16.2 K/mm3 (1.3-6.0)
[2020-03-06 07:39] LABS: Platelet Estimate Normal (NORMAL); RBC Morphology Normal (NORMAL)
[2020-03-06] MEDS: INSULIN LISPRO 100 UNITS/ML VIAL SC SCH (07:59)
[2020-03-06] MEDS: FUROSEMIDE 10 MG/ML VIAL IV SCH (08:00)
[2020-03-06] MEDS: CLOPIDOGREL BISULFATE 75 MG TABLET PO SCH (08:00)
[2020-03-06] MEDS: ASPIRIN 81 MG TABLET.DR PO SCH (08:00)
[2020-03-06] MEDS: LOSARTAN POTASSIUM 50 MG TABLET PO SCH (08:00)
--- NOTE | 2020-03-06 09:08 | DS ---
(1) COVID-19 Problem: Acute (2) Suspected pulmonary embolism Problem: Resolved (3) CHF (congestive heart failure) Problem: Suspected (4) Fatigue Problem: Resolved (5) Lactic acidosis Problem: Resolved (6) Elevated brain natriuretic peptide (BNP) level Problem: Acute (7) Hyponatremia Problem: Chronic (8) CKD (chronic kidney disease) stage 3, GFR 30-59 ml/min Problem: Chronic (9) HTN (hypertension) Problem: Chronic Qualifiers: (10) Hyperglycemia Problem: Acute (11) Bilateral pneumonia Problem: Suspected (12) D-dimer, elevated Problem: Acute (13) Diabetes mellitus Diagnosis(s): Blood sugars were elevated to the 200's and 300's toward the end of his admission. A1C was checked, and was 7.2, no comparison available. He was given sliding scale insulin. This may have been due to steroid use, as he has been on steroids for most of the last month. Since he has been on steroids for longer than 2 weeks, will need to gradually wean. Problem: Suspected (14) Heart failure with reduced ejection fraction Problem: Acute Hospital Course: He was diagnosed positive for COVID on 02/17. This is his 3rd hospitalization since then. He had one day between 1st and 2nd hospitalizations, and 4 days between 2nd and 3rd hospitalizations. During his 2nd hospitalization, he experienced an acute DE, and opted for medication mgt only. He returned to the ED on 02/28 for weakness and dehydration, and was hypoxic to the 80's. On this admission, he was diagnosed with pneumonia and started on levaquin. His D dimer was greater than 10, increasing the suspicion for PE. He was treated for COVID pneumonia with secondary bacterial pneumonia. Echo showed normal right atrium and pulmonary artery pressure, making PE less likely, so blood thinners were discontinued. Echo also showed an ejection fraction of 40%, and septum and anterior wall hypokinesis. He will be DC'd with lasix. They were unable to obtain sufficient IV access for CT angiogram of his chest to assess for PE. He was able to wean off oxygen to room air on 03/02/20. Will continue levaquin to complete a 10 day course. Toward the end of this admission, his WBC increased to 22.3. His glucose was also greater than 300. A1C was 7.2, indicating possible diabetes. He has been on decadron for most of the last month. The decadron could be elevating his glucose, and the acute increase could be causing his leukocytosis. Since he's been on steroids for longer than 2 weeks, will need to do a gradual steroid taper. Will not start metformin at this time, to avoid giving him diarrhea, since he's had so many health problems this month. Recommend checking repeat A1C when he has been off steroids for 3 months, which will be mid June. He is homebound due to weakness secondary to COVID pneumonia, heart failure with reduced ejection fraction, HTN, DM. The need for senior living is medication management and diagnosis management education. The need for home health care skilled services is directly related to time spent [id number] with him. Procedures Performed: none Results and Findings: Pending Mircobiology Results 03/05/20 12:00 Urine,Voided Urine Culture - Preliminary No Growth Lab Pending Results 02/29/20 11:36: WBC 17.2 H, RBC 4.54 L, Hgb 14.7, Hct 42.7, MCV 94.1, MCH 32.4 H, MCHC 34.4, RDW 12.5, Plt Count 268, MPV 10.1, Immature Gran % (Auto) 2.20 H, Immature Gran # (Auto) 0.37 H, Neutrophils % 89.4 H, Lymphocytes % 6.0 L, Monocytes % 2.0, Eosinophils % 0.1, Basophils % 0.3, Nucleated RBC % 0.0, Neutrophils # 15.4 H, Lymphocytes # 1.03 L, Monocytes # 0.4, Eosinophils # 0.0, Absolute Basophils 0.1 02/29/20 11:36: PT 13.1 H, INR (Anticoag Therapy) 1.34 H, PTT (Ziggy) 23.6 L 02/29/20 11:36: Sodium 130 L, Plasma Sodium 131, Potassium 4.3, Chloride 98, Carbon Dioxide 21.1 L, Anion Gap 15.2 H, BUN 21, Creatinine 1.15, Est GFR (Non- Af Amer) 65, BUN/Creatinine Ratio 18.3, Random Glucose 180 H, Calcium 8.2, Calcium Adj for Albumin 9.3, Total Bilirubin 1.0, AST 32, ALT 49, Alkaline Phosphatase 77, Troponin I 0.349 H*, B-Natriuretic Peptide 73853 H, Total Protein 6.1 L, Albumin 2.2 L 02/29/20 11:36: D-Dimer Greater than 10 H 02/29/20 11:36: Lactic Acid, Venous 2.6 H* 02/29/20 11:37: Phosphorus 3.0, Magnesium 2.0 02/29/20 14:50: Urine Color Dark yellow, Urine Appearance Clear, Urine pH 7.0, Ur Specific [place] 1.015, Urine Protein 15 H, Urine Glucose (UA) Negative, Urine Ketones 15, Urine Blood Negative, Urine Nitrate Negative, Urine Bilirubin Negative, Prot Sulfosalicylic Acd Negative, Urine Urobilinogen Normal, Ur Leukocyte Esterase Negative, Urine RBC None seen, Urine WBC Trace, Ur Epithelial Cells None seen, Urine Bacteria 1+ H, Urine Culture Comments No culture indicated 02/29/20 15:11: Lactic Acid, Venous 1.8 03/01/20 06:50: WBC 13.0 H D, RBC 4.35 L, Hgb 14.1, Hct 41.4 L, MCV 95.2, MCH 32.4 H, MCHC 34.1, RDW 12.7, Plt Count 289, MPV 10.3, Immature Gran % (Auto) 1.90 H, Immature Gran # (Auto) 0.24 H, Neutrophils % 86.9 H, Lymphocytes % 8.8 L, Monocytes % 2.1, Eosinophils % 0.1, Basophils % 0.2, Nucleated RBC % 0.0, Neutrophils # 11.3 H, Lymphocytes # 1.14 L, Monocytes # 0.3, Eosinophils # 0.0, Absolute Basophils 0.0 03/01/20 06:50: Sodium 130 L, Plasma Sodium 132, Potassium 4.1, Chloride 99, Carbon Dioxide 20.2 L, Anion Gap 14.9 H, BUN 19, Creatinine 0.98, Est GFR (Non- Af Amer) 78, BUN/Creatinine Ratio 19.4, Random Glucose 212 H, Calcium 8.4, Calci um Adj for Albumin 9.6, Total Bilirubin 0.7, AST 34, ALT 48, Alkaline Phosphatase 66, Total Protein 6.2, Albumin 2.1 L 03/02/20 06:45: WBC 15.8 H D, RBC 4.39 L, Hgb 14.3, Hct 41.8 L, MCV 95.2, MCH 32.6 H, MCHC 34.2, RDW 12.7, Plt Count 330, MPV 10.3, Immature Gran % (Auto) 2.40 H, Immature Gran # (Auto) 0.38 H, Neutrophils % 81.7 H, Lymphocytes % 11.1 L, Monocytes % 4.2, Eosinophils % 0.3, Basophils % 0.3, Nucleated RBC % 0.0, Neutrophils # 12.9 H, Lymphocytes # 1.75, Monocytes # 0.7, Eosinophils # 0.1, Absolute Basophils 0.0 03/02/20 06:45: Sodium 131 L, Plasma Sodium 132, Potassium 4.1, Chloride 100, Carbon Dioxide 22.4 L, Anion Gap 12.7, BUN 21, Creatinine 1.00, Est GFR (Non-Af Amer) 76, BUN/Creatinine Ratio 21.0, Random Glucose 151 H, Calcium 8.4, Calcium Adj for Albumin 9.5, Total Bilirubin 0.7, AST 36, ALT 53, Alkaline Phosphatase 62, Total Protein 6.1 L, Albumin 2.2 L 03/03/20 06:40: WBC 17.1 H, RBC 4.67 L, Hgb 14.9, Hct 44.5, MCV 95.3, MCH 31.9 H, MCHC 33.5, RDW 12.8, Plt Count 336, MPV 10.2, Immature Gran % (Auto) 1.40 H, Immature Gran # (Auto) 0.24 H, Neutrophils % 83.3 H, Lymphocytes % 10.6 L, Mon ocytes % 4.0, Eosinophils % 0.5, Basophils % 0.2, Nucleated RBC % 0.0, Neutrophils # 14.2 H, Lymphocytes # 1.80, Monocytes # 0.7, Eosinophils # 0.1, Absolute Basophils 0.0 03/03/20 06:40: Sodium 131 L, Plasma Sodium 132, Potassium 3.9, Chloride 97, Carbon Dioxide 24.4, Anion Gap 13.5, BUN 21, Creatinine 1.00, Est GFR (Non-Af Amer) 76, BUN/Creatinine Ratio 21.0, Random Glucose 142 H, Calcium 8.5, Calcium Adj for Albumin 9.5, Total Bilirubin 0.8, AST 52 H, ALT 74 H, Alkaline Phosphatase 77, Total Protein 6.4, Albumin 2.4 L 03/04/20 06:52: WBC 16.9 H, RBC 4.76, Hgb 15.3, Hct 44.8, MCV 94.1, MCH 32.1 H, MCHC 34.2, RDW 12.7, Plt Count 310, MPV 9.9, Neutrophils % (Manual) 85 H, Lymphocytes % (Manual) 9 L, Monocytes % (Manual) 5, Eosinophils % (Manual) 1, Neutrophils # (Manual) 14.4 H, Lymphocytes # (Manual) 1.5, Monocytes # (Manual) 0.8, Eosinophils # (Manual) 0.2, Platelet Estimate Normal, RBC Morphology Normal 03/05/20 10:32: WBC 22.3 H D, RBC 5.12, Hgb 16.3, Hct 48.0, MCV 93.8, MCH 31.8 H, MCHC 34.0, RDW 12.9, Plt Count 324, MPV 9.8, Neutrophils % (Manual) 79 H, Lymphocytes % (Manual) 13 L, Monocytes % (Manual) 3, Eosinophils % (Manual) 1, Neutrophils # (Manual) 17.6 H, Lymphocytes # (Manual) 2.9, Monocytes # (Manual) 0.7, Eosinophils # (Manual) 0.2, Atypic/Reactive Lymphs 4 H, Platelet Estimate Normal, RBC Morphology Normal 03/05/20 10:32: Sodium 129 L, Plasma Sodium 132, Potassium 4.1, Chloride 95 L, Carbon Dioxide 24.5, Anion Gap 13.6, BUN 31 H, Creatinine 1.07, Est GFR (Non-Af Amer) 70, BUN/Creatinine Ratio 29.0 H, Random Glucose 258 H D, Calcium 9.3, Calcium Adj for Albumin 10.1, Total Bilirubin 0.6, AST 26, ALT 72 H, Alkaline Phosphatase 77, Total Protein 6.7, Albumin 2.6 L 03/05/20 10:32: Mean Blood Glucose 160, Hemoglobin A1c 7.2 H 03/06/20 07:07: WBC 19.8 H, RBC 4.71, Hgb 15.5, Hct 44.8, MCV 95.1, MCH 32.9 H, MCHC 34.6, RDW 13.0, Plt Count 314, MPV 9.8, Neutrophils % (Manual) 82 H, Lymphocytes % (Manual) 12 L, Monocytes % (Manual) 5, Eosinophils % (Manual) 1, Neutrophils # (Manual) 16.2 H, Lymphocytes # (Manual) 2.4, Monocytes # (Manual) 1.0, Eosinophils # (Manual) 0.2, Platelet Estimate Normal, RBC Morphology Normal 03/06/20 07:07: Sodium 131 L, Plasma Sodium 133, Potassium 4.3, Chloride 98, Carbon Dioxide 25.6, Anion Gap 11.7, BUN 32 H, Creatinine 1.07, Est GFR (Non-Af Amer) 70, BUN/Creatinine Ratio 29.9 H, Random Glucose 219 H, Calcium 9.0, Calcium Adj for Albumin 9.9, Total Bilirubin 0.6, AST 28, ALT 69 H, Alkaline Phosphatase 62, Total Protein 6.3, Albumin 2.5 L 03/06/20 07:07: Procalcitonin 0.08 Discharge Location: Home Disposition: Home Health Service Home Health Agency: [facility] [place] Condition: Serious Face to Face Encounter completed per [facility] Guidelines: Yes Discharge Activity: Activity as tolerated Discharge Diet: Consistent carbs, Low salt Referrals: Kyle Ji MD [Primary Care Provider] - One Week Additional Patient Instructions (free text): [facility] new, please call and fax discharge orders to them. Prescriptions (Any new or edited meds): Furosemide 20 mg PO DAILY #30 tab Transmission Status: Pending to [facility] predniSONE [Prednisone] 10 mg PO DAILY 14 Days #21 tab Transmission Status: Pending to [facility] Complete Home Medications List: Complete Home Medication List: Aspirin [Aspirin EC] 81 mg PO DAILY 02/18/20 Clopidogrel Bisulfate [Plavix] 75 mg PO DAILY 02/18/20 Losartan Potassium [Cozaar] 100 mg PO DAILY 02/18/20 Multivitamin [Multivitamins] 1 ea PO DAILY 02/18/20 Pravastatin Sodium [Pravachol] 40 mg PO DAILY 02/18/20 Promethazine HCl [Phenergan Syrup] 5 ml PO QID PRN 02/18/20 Triamcinolone Acetonide [Kenalog 0.025% Cream] 1 appl TOPICAL BID 02/18/20 Dexamethasone 6 mg PO DAILY #5 tab 02/20/20 Furosemide 20 mg PO DAILY #30 tab 03/06/20 predniSONE [Prednisone] 10 mg PO DAILY 14 Days #21 tab 03/06/20 Forms: Patient Portal Registration
[2020-03-06] MEDS: LEVOFLOXACIN 750 MG TABLET PO SCH (10:37)
[2020-03-06 10:39] VITALS: BP 104/57
--- NOTE | 2020-03-13 07:47 | ECHO ---
This report is available in the EMR
== END 2020-03-06 11:28 | disposition home health service (06) | DRG 177 ==
LOC: ER 10:57 → MS 12:50
PROVIDERS: ADMIT Family Medicine; ATTEND Family Medicine
DX: E09.9 Drug or chemical induced diabetes mellitus without complications; T38.0X5A Adverse effect of glucocorticoids and synthetic analogues, initial encounter; I21.9 Acute myocardial infarction, unspecified; I13.0 Hypertensive heart and chronic kidney disease with heart failure and stage 1 through stage 4 chronic kidney disease, or unspecified chronic kidney disease; I50.20 Unspecified systolic (congestive) heart failure; J15.9 Unspecified bacterial pneumonia; E87.2 Acidosis; E87.1 Hypo-osmolality and hyponatremia; J96.01 Acute respiratory failure with hypoxia; J12.89 Other viral pneumonia; N18.30 Chronic kidney disease, stage 3 unspecified; U07.1 COVID-19